=== PATIENT | male | born 1975 | race African-American/Black ===

== ENCOUNTER 2020-08-30 02:15 | Inpatient (IN) | payer OTHER, SELFPAY ==
[2020-08-30] MEDS ORDERED: Fentanyl 100 MCG/2 ML VIAL ONE (02:24)
[2020-08-30 02:50] LABS: Actual Bicarbonate (HCO3a) 20.2 mEq/L (22-28); Analyzer IN Cardio ER; Base Excess (BEa) -5.2 mEq/L (-2.0 to +3.0); Calcium, Ionized (arterial) 1.14 mmol/L (1.12-1.30); Carboxyhemoglobin (COHb) 0.7 gm% (0.0-3.0); Hemoglobin (Hb) 14.1 g/dL (14.0-18.0); O2 Tension (PaO2), arterial 110.7 mmHg (80.0-100.0); Potassium - ABG Lab 4.33 mmol/L (3.70-5.30); pH, Arterial 7.33 (7.35-7.45)
[2020-08-30 02:50] LABS: #Eosinphils 0.1 thou/uL (0.0-0.7); #Lymphocytes 1.3 thou/uL (1.20-3.40); #Monocytes 0.9 thou/uL (0.11-0.59); #Neutrophils 11.5 thou/uL (1.40-6.50); %Basophils 0.2 % (0.0-1.0); %Eosinophils 0.5 % (0.0-10.0); %Lymphocytes 9.2 % (21.0-51.0); %Monocytes 6.2 % (0.0-10.0); Mean Corpuscular Hemoglobin 31.4 pg (27.0-31.0); Mean Corpuscular Volume 92.2 fL (78.0-98.0); Mean Platelet Volume 6.3 fL (7.4-10.4); Platelet Count 268 thou/uL (130-400); RBC Distribution Width 12.1 % (11.5-14.5); Red Blood Cell (RBC) Count 4.45 mill/uL (4.70-6.10); White Blood Cell (WBC) Count 13.7 thou/uL (4.8-10.8)
[2020-08-30 02:59] LABS: INR-International Normal Ratio 1.1; PTT 23.8 sec (22.9-36.1)
[2020-08-30 03:05] LABS: Magnesium 1.8 mg/dL (1.6-2.6)
[2020-08-30 03:06] LABS: ALT (SGPT) 558 U/L (8-55); AST (SGOT) 469 U/L (5-34); Albumin 3.6 g/dL (3.5-5.0); Alkaline Phosphatase 60 U/L (40-110); Anion Gap 17 mmol/L (10-20); BUN (Urea Nitrogen) 13 mg/dL (8.9-20.6); Bilirubin, Total 0.6 mg/dL (0.2-1.2); Calc. Creatinine Clearance 0 mL/min (70-130); Carbon Dioxide 20 mmol/L (22-29); Chloride 105 mmol/L (98-107); Globulin 2.8 g/dL (2.4-3.5); Glucose 138 mg/dL (70-105); Phosphorus 4.7 mg/dL (2.3-4.7); Potassium 4.5 mmol/L (3.5-5.1); Protein, Total 6.4 g/dL (6.0-8.3); Sodium 137 mmol/L (136-145)
[2020-08-30 03:13] LABS: Puncture Site RBA
[2020-08-30] MEDS ORDERED: Dextrose 5% in Water 1,000 ML IV PRN (03:32)
[2020-08-30] MEDS ORDERED: Dextrose 50% Abboject 50 ML SYRINGE SLOW IVP PRN (03:32)
[2020-08-30] MEDS ORDERED: Ondansetron PF 4 MG/2 ML Vial IVP PRN (03:37)
[2020-08-30] MEDS ORDERED: Ventilator Sedation Protocol 1 EACH FS SCH (03:45)
[2020-08-30] MEDS ORDERED: Lactated Ringer's 1,000 ML IV SCH ×2 (03:45)
[2020-08-30] MEDS ORDERED: Morphine 2 MG/ML VIAL SLOW IVP PRN (03:45)
[2020-08-30] MEDS ORDERED: Propofol BOLUS 1,000 MG/100 ML VIAL IV PRN (03:45)
[2020-08-30] MEDS ORDERED: Fentanyl BOLUS 250 ML IVPB PRN (03:45)
[2020-08-30] MEDS ORDERED: DISCONTINUE PREVIOUS NARCOTIC PAIN MEDICATIONS AND BENZODIAZEPINES FS SCH (03:45)
[2020-08-30] MEDS ORDERED: Propofol 1,000 MG/100 ML VIAL IV ONE ×5 (04:39→16:06)
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
[2020-08-30 05:39] LABS: Lactic Acid 2.1 mmol/L (0.5-2.2)
[2020-08-30] MEDS: Propofol 1,000 MG/100 ML VIAL IV PRN ×3 (05:57→22:17)
[2020-08-30] MEDS: CEFAZOLIN 2 GM in Premix Bag 1 BAG IVPB SCH ×3 (05:58→20:55)
[2020-08-30 06:59] LABS: Bilirubin Negative (Negative); Blood, Urine 3+ (Negative); Clarity Turbid (Clear); Glucose, Urine (Dipstick) Normal (Negative); Ketone, Urine Negative (Negative); Leukocyte Negative Leu/uL (Negative); Nitrite Negative (Negative); Protein, Urine (Dipstick) 10 mg/dL (Neg-Trace); RBC/HPF Greater than 50 HPF (0-3); Specific Gravity, Urine 1.043 (1.002-1.036); Urobilinogen Normal mg/dL (Less than 2)
[2020-08-30 07:00] LABS: Sperm/HPF Rare HPF (None Seen)
[2020-08-30 07:17] LABS: Bacteria/HPF Rare-Few HPF (None Seen); Squamous Epithelial 0-3 HPF (0-3)
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
[2020-08-30] MEDS ORDERED: Famotidine/PF 20 mg/2ml Vial ONE (09:33)
[2020-08-30 09:52] LABS: Base Excess-Venous -0.8 mmol/L (-2.0 to 3.0); Bicarbonate (HCO3v) 26.9 mmol/L (22.0-28.0); CO2 Tension (PvCO2) 55.7 mmHg (40.0-50.0); Calcium, Ionized 1.12 mmol/L (1.15-1.33); Chloride 104 mmol/L (98-107); Glucose 120 mg/dL (70-105); Lactate 1.94 mmol/L (0.50-2.20); Potassium 4.6 mmol/L (3.5-5.1); Sodium 139 mmol/L (138-145); T. Carbon Dioxide 28.6 mmol/L (22.0-28.0); vO2 Saturation-calc 64.7 % (60.0-85.0)
[2020-08-30] MEDS: Lactated Ringer's 1,000 ML IV SCH ×2 (10:05→19:15)
[2020-08-30] MEDS: Famotidine/PF 20 mg/2ml Vial SLOW IVP SCH ×2 (10:06→20:55)
--- NOTE | 2020-08-30 10:17 | RAD ---
PORTABLE CHEST: Date: 08/30/2020 PROVIDED CLINICAL HISTORY: Respiratory failure. FINDINGS: Comparison with 08/30/2020 at 0322 hours. Significant interval change with respect to the prior examination is not apparent. IMPRESSION: As above. POS: ENOCH
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
[2020-08-30 11:43] LABS: Hemoglobin 14.5 g/dL (14.0-18.0); Mean Corpuscular HGB CONC 33.4 g/dL (32.0-36.0); Mean Corpuscular Hemoglobin 30.3 pg (27.0-31.0); Mean Corpuscular Volume 90.6 fL (78.0-98.0); Mean Platelet Volume 6.4 fL (7.4-10.4); Platelet Count 298 thou/uL (130-400); RBC Distribution Width 12.2 % (11.5-14.5); Red Blood Cell (RBC) Count 4.78 mill/uL (4.70-6.10); White Blood Cell (WBC) Count 11.5 thou/uL (4.8-10.8)
[2020-08-30 12:03] LABS: Anion Gap 15 mmol/L (10-20); BUN (Urea Nitrogen) 12 mg/dL (8.9-20.6); Calc. Creatinine Clearance 157 mL/min (70-130); Calcium 8.3 mg/dL (7.8-10.44); Carbon Dioxide 23 mmol/L (22-29); Chloride 104 mmol/L (98-107); Glucose 115 mg/dL (70-105); Potassium 4.8 mmol/L (3.5-5.1); Sodium 137 mmol/L (136-145)
[2020-08-30] MEDS ORDERED: Acetaminophen 650 MG Suppository ONE (12:43)
[2020-08-30] MEDS ORDERED: Acetaminophen 325 MG Suppository ONE (12:43)
[2020-08-30] MEDS ORDERED: Lactated Ringer's 500 ML IV SCH (13:15)
[2020-08-30] MEDS: Lorazepam 2 MG/ML VIAL SLOW IVP PRN (17:50)
[2020-08-30] MEDS ORDERED: Fentanyl CADD 100 ML ONE (19:13)
[2020-08-30] MEDS: Fentanyl CADD 100 ML IV SCH (19:15)
[2020-08-30 19:54] LABS: Hemoglobin 14.2 g/dL (14.0-18.0); Mean Corpuscular HGB CONC 32.6 g/dL (32.0-36.0); Mean Corpuscular Hemoglobin 29.9 pg (27.0-31.0); Mean Corpuscular Volume 91.7 fL (78.0-98.0); Mean Platelet Volume 6.4 fL (7.4-10.4); Platelet Count 301 thou/uL (130-400); RBC Distribution Width 12.3 % (11.5-14.5); Red Blood Cell (RBC) Count 4.76 mill/uL (4.70-6.10); White Blood Cell (WBC) Count 20.4 thou/uL (4.8-10.8)
[2020-08-31] MEDS: Propofol 1,000 MG/100 ML VIAL IV PRN ×4 (02:13→21:46)
[2020-08-31] MEDS ORDERED: Lactated Ringer's 500 ML IV SCH (04:30)
[2020-08-31 04:46] LABS: ALT (SGPT) 566 U/L (8-55); AST (SGOT) 371 U/L (5-34); Albumin 3.2 g/dL (3.5-5.0); Alkaline Phosphatase 91 U/L (40-110); Anion Gap 15 mmol/L (10-20); BUN (Urea Nitrogen) 26 mg/dL (8.9-20.6); Bilirubin, Total 0.6 mg/dL (0.2-1.2); Calc. Creatinine Clearance 42 mL/min (70-130); Calcium 8.1 mg/dL (7.8-10.44); Carbon Dioxide 22 mmol/L (22-29); Chloride 99 mmol/L (98-107); Globulin 3.2 g/dL (2.4-3.5); Glucose 130 mg/dL (70-105); Magnesium 1.8 mg/dL (1.6-2.6); Phosphorus 5.3 mg/dL (2.3-4.7); Potassium 5.3 mmol/L (3.5-5.1); Protein, Total 6.4 g/dL (6.0-8.3); Sodium 131 mmol/L (136-145)
[2020-08-31] MEDS: CEFAZOLIN 2 GM in Premix Bag 1 BAG IVPB SCH (05:27)
[2020-08-31] MEDS: Lactated Ringer's 1,000 ML IV SCH ×3 (05:28→16:11)
[2020-08-31 05:45] LABS: Eosinophils 6 % (0-10); Hemoglobin 13.2 g/dL (14.0-18.0); Lymphocytes 8 % (21-51); MDiff Complete? YES; Mean Corpuscular HGB CONC 31.8 g/dL (32.0-36.0); Mean Corpuscular Hemoglobin 29.1 pg (27.0-31.0); Mean Corpuscular Volume 91.8 fL (78.0-98.0); Mean Platelet Volume 6.9 fL (7.4-10.4); Monocytes 5 % (0-10); Neutrophil 65 % (42-75); Nucleated RBC 4 % (0); Platelet Count 273 thou/uL (130-400); Platelet Morphology Comment Appears Adequate; Promyelocytes 15 % (0-0); RBC Distribution Width 12.1 % (11.5-14.5); Reactive Lymphocytes 1 % (0-10); Red Blood Cell (RBC) Count 4.53 mill/uL (4.70-6.10); White Blood Cell (WBC) Count 21.6 thou/uL (4.8-10.8)
[2020-08-31] MEDS ORDERED: Fentanyl CADD 100 ML ONE ×2 (05:56→18:09)
[2020-08-31] MEDS: Fentanyl CADD 100 ML IV SCH ×2 (05:59→18:15)
[2020-08-31] MEDS: Famotidine/PF 20 mg/2ml Vial SLOW IVP SCH ×2 (09:11→20:44)
--- NOTE | 2020-08-31 09:26 | RAD ---
PORTABLE CHEST: 08/31/20 PROVIDED CLINICAL HISTORY: Respiratory failure. COMPARISON: 08/30/2020 FINDINGS: Direct comparison is limited, given differences in patient positioning. There is probably some improv ement in aeration at the right upper lung zone. There is a somewhat sharply defined lucency overlying a portion of the left lateral heart margin, which may reflect pneumomediastinum. Additional signific ant interval change with respect to prior is not apparent. IMPRESSION: Possible small degree of pneumomediastinum. POS: ENOCH
[2020-08-31] MEDS ORDERED: Albumin 5% 0 ML ONE (09:53)
[2020-08-31] MEDS ORDERED: Fentanyl 250 MCG/5 ML VIAL ONE (09:53)
[2020-08-31] MEDS ORDERED: Phenylephrine 10 MG/ML VIAL ONE (09:53)
[2020-08-31] MEDS ORDERED: Midazolam HCl 2 mg/2 ml Vial ONE (09:53)
[2020-08-31] MEDS ORDERED: Ketamine 50 MG/ML (10ML VIAL) ONE (09:54)
[2020-08-31] MEDS: Piperacillin/Tazobactam 4.5 GM in Sodium Chloride 0.9% 100 ML IVPB SCH ×2 (10:03→18:23)
[2020-08-31] MEDS ORDERED: Fentanyl 100 MCG/2 ML VIAL ONE (10:10)
[2020-08-31] MEDS ORDERED: Ondansetron PF 4 MG/2 ML Vial ONE (10:32)
[2020-08-31] MEDS ORDERED: Rocuronium Bromide 10 MG/ML (10ML VIAL) ONE (10:32)
[2020-08-31] MEDS ORDERED: PROPOFOL 200 MG/20 ML VIAL ONE ×2 (10:32)
[2020-08-31] MEDS ORDERED: Vecuronium 10 MG VIAL ONE (10:32)
[2020-08-31] MEDS ORDERED: Dexamethasone 20 MG/5 ML VIAL ONE (10:32)
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
[2020-08-31] MEDS ORDERED: Sodium Chloride 0.9% 1,000 ML IV SCH (13:15)
[2020-08-31 14:58] LABS: Hemoglobin 12.3 g/dL (14.0-18.0); Mean Corpuscular HGB CONC 32.2 g/dL (32.0-36.0); Mean Corpuscular Hemoglobin 29.6 pg (27.0-31.0); Mean Corpuscular Volume 91.9 fL (78.0-98.0); Mean Platelet Volume 6.8 fL (7.4-10.4); Platelet Count 219 thou/uL (130-400); RBC Distribution Width 11.9 % (11.5-14.5); Red Blood Cell (RBC) Count 4.17 mill/uL (4.70-6.10); White Blood Cell (WBC) Count 17.8 thou/uL (4.8-10.8)
[2020-08-31 15:01] LABS: INR-International Normal Ratio 1.4; PTT 28.1 sec (22.9-36.1); Prothrombin Time 17.1 sec (12.0-14.7)
[2020-08-31 15:09] LABS: Anion Gap 17 mmol/L (10-20); BUN (Urea Nitrogen) 32 mg/dL (8.9-20.6); Calc. Creatinine Clearance 36 mL/min (70-130); Calcium 7.7 mg/dL (7.8-10.44); Carbon Dioxide 20 mmol/L (22-29); Chloride 105 mmol/L (98-107); Glucose 140 mg/dL (70-105); Potassium 5.9 mmol/L (3.5-5.1); Sodium 136 mmol/L (136-145)
[2020-08-31 15:15] LABS: Band 3 % (5-11); Eosinophils 5 % (0-10); Lymphocytes 37 % (21-51); MDiff Complete? YES; Monocytes 9 % (0-10); Neutrophil 46 % (42-75); Platelet Morphology Comment Appears Adequate; RBC Morphology Normal
[2020-08-31] MEDS ORDERED: Dextrose 50% Abboject 50 ML SYRINGE SLOW IVP SCH (16:00)
[2020-08-31] MEDS ORDERED: Insulin Regular 300 UNITS/3 ML VIAL IVP SCH (16:00)
[2020-08-31] MEDS ORDERED: Albuterol Sulfate 2.5 mg/0.5 ml Neb NEB SCH (16:00)
[2020-08-31] MEDS: Sodium Chloride 0.9% 1,000 ML IV SCH (18:25)
[2020-08-31] MEDS: Piperacillin/Tazobactam 2.25 GM in Sodium Chloride 0.9% 100 ML IVPB SCH (20:45)
[2020-08-31] MEDS ORDERED: Sodium Bicarb 50 MEQ/50 ML Abboject 8.4% SYRINGE IVP SCH (21:15)
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
[2020-09-01] MEDS: Piperacillin/Tazobactam 2.25 GM in Sodium Chloride 0.9% 100 ML IVPB SCH ×4 (01:54→20:16)
[2020-09-01] MEDS: Sodium Chloride 0.9% 1,000 ML IV SCH ×3 (01:54→17:58)
[2020-09-01] MEDS ORDERED: Fentanyl CADD 100 ML ONE ×2 (03:21→13:08)
[2020-09-01] MEDS: Fentanyl CADD 100 ML IV SCH ×2 (03:27→22:31)
[2020-09-01] MEDS: Propofol 1,000 MG/100 ML VIAL IV PRN ×5 (03:27→22:47)
[2020-09-01 04:43] LABS: Phosphorus 3.9 mg/dL (2.3-4.7)
[2020-09-01 04:44] LABS: ALT (SGPT) 218 U/L (8-55); AST (SGOT) 135 U/L (5-34); Albumin 2.6 g/dL (3.5-5.0); Alkaline Phosphatase 75 U/L (40-110); Anion Gap 15 mmol/L (10-20); BUN (Urea Nitrogen) 37 mg/dL (8.9-20.6); Band 48 % (5-11); Bilirubin, Total 0.6 mg/dL (0.2-1.2); Calc. Creatinine Clearance 39 mL/min (70-130); Calcium 8.2 mg/dL (7.8-10.44); Carbon Dioxide 24 mmol/L (22-29); Chloride 109 mmol/L (98-107); Glucose 140 mg/dL (70-105); Hemoglobin 11.2 g/dL (14.0-18.0); Lymphocytes 4 % (21-51); MDiff Complete? YES; Magnesium 2.1 mg/dL (1.6-2.6); Mean Corpuscular HGB CONC 31.7 g/dL (32.0-36.0); Mean Corpuscular Hemoglobin 28.9 pg (27.0-31.0); Mean Corpuscular Volume 91.1 fL (78.0-98.0); Mean Platelet Volume 7.1 fL (7.4-10.4); Metamyelocyte 1 % (0-0); Monocytes 5 % (0-10); Neutrophil 41 % (42-75); Platelet Count 220 thou/uL (130-400); Platelet Morphology Comment Appears Adequate; Potassium 4.8 mmol/L (3.5-5.1); Protein, Total 5.6 g/dL (6.0-8.3); RBC Distribution Width 11.8 % (11.5-14.5); Reactive Lymphocytes 1 % (0-10); Red Blood Cell (RBC) Count 3.88 mill/uL (4.70-6.10); Sodium 143 mmol/L (136-145); White Blood Cell (WBC) Count 16.3 thou/uL (4.8-10.8)
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
[2020-09-01] MEDS: Famotidine/PF 20 mg/2ml Vial SLOW IVP SCH ×2 (08:24→08:40)
--- NOTE | 2020-09-01 09:45 | RAD ---
PORTABLE CHEST: Date: 09/01/2020 HISTORY: Respiratory failure. COMPARISON: 08/31/2020 exam. FINDINGS: Endotracheal and NG tubes are in satisfactory position. Infiltrative changes in the left lung are sim ilar to the prior examination. There is increasing opacification of the right upper lobe. This would suggest atelectasis related to mucus plugging of the right upper lobe. IMPRESSION: Worsening atelectatic changes of the right upper lobe. Stable left-sided infiltrative lung change. POS: [place]
[2020-09-01] MEDS ORDERED: Midazolam HCl 2 mg/2 ml Vial ONE (10:15)
[2020-09-01] MEDS ORDERED: Midazolam HCl 2 mg/2 ml Vial SLOW IVP SCH (10:45)
[2020-09-01] MEDS: Lorazepam 2 MG/ML VIAL SLOW IVP PRN (12:36)
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
[2020-09-02] MEDS: Piperacillin/Tazobactam 2.25 GM in Sodium Chloride 0.9% 100 ML IVPB SCH ×4 (01:55→20:58)
[2020-09-02] MEDS: Propofol 1,000 MG/100 ML VIAL IV PRN ×7 (03:15→23:21)
[2020-09-02 03:42] LABS: Band 19 % (5-11); Eosinophils 5 % (0-10); Hemoglobin 10.1 g/dL (14.0-18.0); Hypochromia SLIGHT = 6-15 cells (100X) (0-5/hpf); Lymphocytes 12 % (21-51); MDiff Complete? YES; Mean Corpuscular HGB CONC 33.9 g/dL (32.0-36.0); Mean Corpuscular Hemoglobin 30.9 pg (27.0-31.0); Mean Corpuscular Volume 91.4 fL (78.0-98.0); Mean Platelet Volume 6.9 fL (7.4-10.4); Monocytes 7 % (0-10); Neutrophil 57 % (42-75); Platelet Count 256 thou/uL (130-400); Platelet Morphology Comment Appears Adequate; RBC Distribution Width 11.9 % (11.5-14.5); Red Blood Cell (RBC) Count 3.26 mill/uL (4.70-6.10); White Blood Cell (WBC) Count 15.6 thou/uL (4.8-10.8)
[2020-09-02 03:43] LABS: Anion Gap 13 mmol/L (10-20); BUN (Urea Nitrogen) 48 mg/dL (8.9-20.6); Calc. Creatinine Clearance 44 mL/min (70-130); Calcium 8.3 mg/dL (7.8-10.44); Carbon Dioxide 24 mmol/L (22-29); Chloride 114 mmol/L (98-107); Glucose 105 mg/dL (70-105); Magnesium 2.6 mg/dL (1.6-2.6); Phosphorus 3.2 mg/dL (2.3-4.7); Potassium 4.4 mmol/L (3.5-5.1); Sodium 147 mmol/L (136-145)
[2020-09-02] MEDS: Sodium Chloride 0.9% 1,000 ML IV SCH ×2 (04:22→11:30)
[2020-09-02] MEDS ORDERED: Albumin 25% 25 GM/100 ML BOT IVPB SCH (05:33)
[2020-09-02] MEDS ORDERED: Fentanyl 100 MCG/2 ML VIAL ONE (06:36)
[2020-09-02] MEDS ORDERED: Midazolam HCl 5 mg/5 ml Vial ONE (07:09)
--- NOTE | 2020-09-02 08:03 | RAD ---
EXAM: XR Chest 1 View Portable PROVIDED CLINICAL HISTORY: Respiratory insufficiency COMPARISON: 09/01/2020 FINDINGS: Interval improvement in aeration at the right upper lobe. Additional significant interval change with respect to the prior examination is not apparent. IMPRESSION: As above.
[2020-09-02] MEDS: Polyethylene Glycol 3350 17 GM Packet PO SCH (09:00)
[2020-09-02] MEDS: Senokot S 8.6-50 MG TAB PO SCH ×2 (09:00→20:58)
[2020-09-02] MEDS ORDERED: Rocuronium Bromide 50 MG/5 ML VIAL ONE (09:01)
[2020-09-02] MEDS ORDERED: Rocuronium Bromide 10 MG/ML (10ML VIAL) ONE (09:10)
[2020-09-02] MEDS ORDERED: PROPOFOL 200 MG/20 ML VIAL ONE (09:11)
--- NOTE | 2020-09-02 10:50 | RAD ---
Exam: 1 view abdomen HISTORY: Feeding tube placement FINDINGS: Dobbhoff feeding tube is noted, curled within the stomach. Repositioning and advancement is recommended. Nasogastric tube terminates in the stomach IMPRESSION: As above
[2020-09-02] MEDS: Fentanyl CADD 100 ML IV SCH ×2 (11:15→22:01)
[2020-09-02] MEDS: Famotidine/PF 20 mg/2ml Vial SLOW IVP SCH (11:32)
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
--- NOTE | 2020-09-02 12:36 | PRG ---
DATE OF SERVICE: SUBJECTIVE: A 45-year-old gentleman being seen for acute kidney injury. The patient is resting. PHYSICAL EXAMINATION: GENERAL: The patient is resting. VITAL SIGNS: Afebrile, pulse 75, breathing at 16, blood pressure 175/120. HEENT: Head normocephalic and atraumatic. Eyes intact, no ulcers. Nose intact, no ulcers. Ears intact, no ulcers. NECK: Supple. No JVD. CHEST: Symmetrical and clear. CARDIOVASCULAR: Shows S1 and S2, no rub, no murmur. GASTROINTESTINAL: Abdomen is soft, bowel sounds positive. EXTREMITIES: Show no edema or ulcers. SKIN: Shows no rash or petechiae. MUSCULOSKELETAL: Shows no joint swelling or stiffness. GENITOURINARY: Shows no Charles or CVA tenderness. NEUROLOGIC: Motor intact. Cranial nerves intact. LABORATORY DATA: Hemoglobin 10.1. Sodium 147, creatinine 3.4. ASSESSMENT: 1. Acute kidney injury, improved. 2. Hypertension, would recommend titrating blood pressure medications. 3. Anemia, stable. PLAN: No indication for dialysis. Job ID: [id number]
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
[2020-09-02] MEDS ORDERED: Fentanyl CADD 100 ML ONE (21:55)
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
[2020-09-03] MEDS: Piperacillin/Tazobactam 2.25 GM in Sodium Chloride 0.9% 100 ML IVPB SCH ×4 (01:48→19:15)
[2020-09-03] MEDS: Sodium Chloride 0.9% 1,000 ML IV SCH ×3 (01:51→07:49)
[2020-09-03] MEDS: Propofol 1,000 MG/100 ML VIAL IV PRN ×7 (02:19→21:45)
[2020-09-03 04:49] LABS: Band 18 % (5-11); Eosinophils 1 % (0-10); Hemoglobin 9.9 g/dL (14.0-18.0); Lymphocytes 7 % (21-51); MDiff Complete? YES; Mean Corpuscular HGB CONC 32.9 g/dL (32.0-36.0); Mean Corpuscular Hemoglobin 30.5 pg (27.0-31.0); Mean Corpuscular Volume 92.6 fL (78.0-98.0); Mean Platelet Volume 6.9 fL (7.4-10.4); Metamyelocyte 2 % (0-0); Monocytes 9 % (0-10); Myelocyte 2 % (0-0); Neutrophil 60 % (42-75); Platelet Count 273 thou/uL (130-400); Platelet Morphology Comment Appears Adequate; RBC Distribution Width 12.2 % (11.5-14.5); Reactive Lymphocytes 1 % (0-10); Red Blood Cell (RBC) Count 3.25 mill/uL (4.70-6.10)
[2020-09-03 05:00] LABS: Anion Gap 15 mmol/L (10-20); BUN (Urea Nitrogen) 47 mg/dL (8.9-20.6); Calc. Creatinine Clearance 43 mL/min (70-130); Carbon Dioxide 23 mmol/L (22-29); Chloride 117 mmol/L (98-107); Glucose 128 mg/dL (70-105); Magnesium 2.8 mg/dL (1.6-2.6); Phosphorus 4.4 mg/dL (2.3-4.7); Potassium 4.8 mmol/L (3.5-5.1); Sodium 150 mmol/L (136-145)
[2020-09-03] MEDS ORDERED: Dextrose 5 %-0.45 % NaCl 1,000 ML IV SCH (07:15)
[2020-09-03] MEDS ORDERED: Sodium Bicarbonate 50 MEQ in Dextrose 5% in Water 1,000 ML IV SCH ×2 (08:30→14:45)
[2020-09-03 08:43] LABS: ALT (SGPT) 75 U/L (8-55); AST (SGOT) 84 U/L (5-34); Albumin 2.6 g/dL (3.5-5.0); Alkaline Phosphatase 77 U/L (40-110); Bilirubin, Total 2.4 mg/dL (0.2-1.2); CK (CPK) 2435 U/L (30-200); Protein, Total 5.7 g/dL (6.0-8.3)
[2020-09-03] MEDS: Enoxaparin Sodium 30 MG/0.3 ML SYRINGE SC SCH ×2 (08:43→20:56)
[2020-09-03] MEDS: Senokot S 8.6-50 MG TAB PO SCH ×2 (08:43→20:57)
[2020-09-03] MEDS: Saccharomyces boulardii 250 MG CAP PO SCH (08:43)
[2020-09-03] MEDS: Polyethylene Glycol 3350 17 GM Packet PO SCH (08:44)
[2020-09-03] MEDS: Famotidine/PF 20 mg/2ml Vial SLOW IVP SCH (08:44)
--- NOTE | 2020-09-03 09:06 | RAD ---
CHEST 1 VIEW: INDICATION: Intubation. COMPARISON: Prior exam dated 09/02/2020. IMPRESSION: There is worsening bilateral airspace disease. No pneumothorax is evident. The patient was intubate d with gastric catheter placement. There has been interval placement of a feeding tube that projects below the level of the left hemidiaphragm. Right internal jugular central venous catheter is stable . POS: BH
[2020-09-03] MEDS ORDERED: Dextrose 5% in Water 1,000 ML IV SCH (09:30)
[2020-09-03] MEDS: Fentanyl CADD 100 ML IV SCH ×2 (09:38→21:35)
--- NOTE | 2020-09-03 09:48 | PRG ---
DATE OF SERVICE: 09/03/2020 SUBJECTIVE: A 45-year-old male, being seen for acute kidney injury. The patient is resting. PHYSICAL EXAMINATION: General: The patient is awake and alert. Vital Signs: Afebrile, pulse 102, breathing at 16, blood pressure 147/97. HEENT: Head normocephalic and atraumatic. Eyes intact, no ulcers. Nose intact, no ulcers. Ears intact, no ulcers. Neck: Supple. No JVD. Chest: Symmetrical and clear. Cardiovascular: Shows S1 and S2, no rub, no murmur. Gastrointestinal: Abdomen is soft, bowel sounds positive. Extremities: Show no edema or ulcers. Skin: Shows no rash or petechiae. Musculoskeletal: Shows no joint swelling or stiffness. Genitourinary: Shows no Charles or CVA tenderness. Neurologic: Motor intact. Cranial nerves intact. LABORATORY DATA: Showed hemoglobin 9.9. Creatinine 3.6. ASSESSMENT AND PLAN: 1. Stage 4 chronic kidney disease, multifactorial, likely due to decreased effective arterial blood volume. Continue hydration. 2. Anemia, stable. 3. Medication based on GFR, appropriate. No indication for dialysis. 4. Hypernatremia. Change the IV fluid to D5 water. Stop the bicarb drip. No indication for dialysis. Job ID: [id number]
[2020-09-03 11:56] LABS: Actual Bicarbonate (HCO3a) 24.5 mEq/L (22-28); Base Excess (BEa) -2.5 mEq/L (-2.0 to +3.0); CO2 Tension 52.1 mmHg (35.0-45.0); Calcium, Ionized (arterial) 1.02 mmol/L (1.12-1.30); Carboxyhemoglobin (COHb) 0.2 gm% (0.0-3.0); Hemoglobin (Hb) 11.1 g/dL (14.0-18.0); O2 Tension (PaO2), arterial 341.7 mmHg (80.0-100.0); Potassium - ABG Lab 4.47 mmol/L (3.70-5.30); pH, Arterial 7.29 (7.35-7.45)
[2020-09-03 11:59] LABS: Puncture Site LRA
[2020-09-03 12:00] LABS: ALV-art Gradient 306.175 mmHg (0-20)
[2020-09-03] MEDS ORDERED: Calcium Chloride 13.6 MEQ in Sodium Chloride 0.9% 100 ML IVPB SCH (12:30)
[2020-09-03 15:09] LABS: Hemoglobin 9.4 g/dL (14.0-18.0); Mean Corpuscular HGB CONC 33.3 g/dL (32.0-36.0); Mean Corpuscular Hemoglobin 31.1 pg (27.0-31.0); Mean Corpuscular Volume 93.6 fL (78.0-98.0); Mean Platelet Volume 6.3 fL (7.4-10.4); Platelet Count 250 thou/uL (130-400); RBC Distribution Width 12.4 % (11.5-14.5); Red Blood Cell (RBC) Count 3.02 mill/uL (4.70-6.10); White Blood Cell (WBC) Count 16.7 thou/uL (4.8-10.8)
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
[2020-09-03 15:23] LABS: Band 13 % (5-11); Eosinophils 4 % (0-10); Lymphocytes 8 % (21-51); MDiff Complete? YES; Monocytes 9 % (0-10); Myelocyte 1 % (0-0); Neutrophil 65 % (42-75); Platelet Morphology Comment Appears Adequate; Polychromasia SLIGHT = 2-3 cells (100X) (0-2/hpf)
[2020-09-03 15:30] LABS: Anion Gap 10 mmol/L (10-20); BUN (Urea Nitrogen) 45 mg/dL (8.9-20.6); Calc. Creatinine Clearance 45 mL/min (70-130); Calcium 8.8 mg/dL (7.8-10.44); Carbon Dioxide 25 mmol/L (22-29); Chloride 119 mmol/L (98-107); Glucose 115 mg/dL (70-105); Magnesium 3.1 mg/dL (1.6-2.6); Phosphorus 4.2 mg/dL (2.3-4.7); Potassium 4.6 mmol/L (3.5-5.1); Sodium 149 mmol/L (136-145)
[2020-09-03] MEDS ORDERED: Fentanyl CADD 100 ML ONE ×2 (16:16→20:40)
[2020-09-03 16:56] LABS: SARS-CoV-2 PCR by NAA Not Detected (NotDetected)
--- NOTE | 2020-09-03 23:15 | PDOC.BPN ---
- Brief Progress Note Encounter Date: 09/03/20 Encounter Time: 20:15 Patient was seen during evening rounds in the critical care unit on full mechanical ventilatory support and sedation. No issues reported by the patients nurse. Vital signs are stable and patient is afebrile. Urinary output is adequate for age and weight. Continues to tolerate tropic feeds. Plan of care is unchanged
[2020-09-04] MEDS: Propofol 1,000 MG/100 ML VIAL IV PRN ×7 (00:44→22:15)
[2020-09-04] MEDS: Piperacillin/Tazobactam 2.25 GM in Sodium Chloride 0.9% 100 ML IVPB SCH ×4 (01:18→19:47)
[2020-09-04 04:48] LABS: Band 8 % (5-11); Eosinophils 2 % (0-10); Hemoglobin 8.6 g/dL (14.0-18.0); Hypochromia SLIGHT = 6-15 cells (100X) (0-5/hpf); Lymphocytes 11 % (21-51); MDiff Complete? YES; Mean Corpuscular Hemoglobin 30.8 pg (27.0-31.0); Mean Corpuscular Volume 93.3 fL (78.0-98.0); Mean Platelet Volume 6.8 fL (7.4-10.4); Monocytes 19 % (0-10); Neutrophil 60 % (42-75); Platelet Count 268 thou/uL (130-400); Platelet Morphology Comment Appears Adequate; RBC Distribution Width 12.5 % (11.5-14.5); White Blood Cell (WBC) Count 17.8 thou/uL (4.8-10.8)
[2020-09-04 04:54] LABS: Lactic Acid 0.6 mmol/L (0.5-2.2)
[2020-09-04 05:01] LABS: Anion Gap 14 mmol/L (10-20); BUN (Urea Nitrogen) 45 mg/dL (8.9-20.6); CK (CPK) 1636 U/L (30-200); Calc. Creatinine Clearance 42 mL/min (70-130); Calcium 8.5 mg/dL (7.8-10.44); Carbon Dioxide 26 mmol/L (22-29); Chloride 118 mmol/L (98-107); Glucose 131 mg/dL (70-105); Magnesium 3.1 mg/dL (1.6-2.6); Phosphorus 4.9 mg/dL (2.3-4.7); Potassium 4.6 mmol/L (3.5-5.1); Sodium 153 mmol/L (136-145)
[2020-09-04 07:44] LABS: ALT (SGPT) 58 U/L (8-55); AST (SGOT) 72 U/L (5-34); Albumin 2.6 g/dL (3.5-5.0); Alkaline Phosphatase 108 U/L (40-110); Bilirubin, Direct 1.9 mg/dL (0.1-0.3); Bilirubin, Total 2.4 mg/dL (0.2-1.2); Lipase 48 U/L (8-78); Protein, Total 6.1 g/dL (6.0-8.3)
--- NOTE | 2020-09-04 08:35 | RAD ---
Exam: Chest one view HISTORY:Intubated patient. Respiratory distress. Comparison: 09/03/2020, 09/02/2020 FINDINGS: Lines and tubes: Redemonstration of a endotracheal tube, nasogastric tube and right-sided internal ju gular vascular catheter. Interval placement of a Dobbhoff feeding tube. Cardiac silhouette: Normal Aorta: Unremarkable Pulmonary vessels: Normal Costophrenic angles: Clear LUNGS: Redemonstration of multifocal interstitial and alveolar opacities. Pneumothorax: None Osseous abnormalities: None IMPRESSION: Interval placement of Dobbhoff feeding tube, otherwise, no significant interval change. D obbhoff feeding tube cannot be assessed on this exam as it is not included in its entirety.
[2020-09-04] MEDS: Enoxaparin Sodium 30 MG/0.3 ML SYRINGE SC SCH ×2 (08:48→20:03)
[2020-09-04] MEDS: Saccharomyces boulardii 250 MG CAP PO SCH (08:48)
[2020-09-04] MEDS: Senokot S 8.6-50 MG TAB PO SCH ×2 (08:48→20:03)
[2020-09-04] MEDS: Polyethylene Glycol 3350 17 GM Packet PO SCH (08:49)
[2020-09-04] MEDS: Famotidine/PF 20 mg/2ml Vial SLOW IVP SCH (08:49)
[2020-09-04] MEDS: Dextrose 5% in Water 1,000 ML IV SCH ×3 (08:52→23:00)
[2020-09-04] MEDS ORDERED: Fentanyl CADD 100 ML ONE ×2 (09:16→20:09)
--- NOTE | 2020-09-04 15:03 | PRG ---
DATE OF SERVICE: 09/04/2020 SUBJECTIVE: A 45-year-old gentleman, being seen for acute kidney injury. PHYSICAL EXAMINATION: GENERAL: The patient is resting. VITAL SIGNS: Afebrile, pulse 100, breathing at 16, blood pressure 133/67. HEENT: Head normocephalic and atraumatic. Eyes intact, no ulcers. Nose intact, no ulcers. Ears intact, no ulcers. NECK: Supple. No JVD. CHEST: Symmetrical and clear. CARDIOVASCULAR: Shows S1 and S2, no rub, no murmur. GASTROINTESTINAL: Abdomen is soft, bowel sounds positive. EXTREMITIES: Show no edema or ulcers. SKIN: Shows no rash or petechiae. MUSCULOSKELETAL: Shows no joint swelling or stiffness. GENITOURINARY: Shows no Charles or CVA tenderness. NEUROLOGIC: The patient is resting. DIAGNOSTIC STUDIES: Labs show hemoglobin 8.6. Sodium was 153, creatinine 3.6. ASSESSMENT AND PLAN: 1. Acute kidney injury with chronic kidney disease stage 4, most likely due to decreased effective arterial blood volume. Continue hydration. 2. Hypernatremia, we would recommend increasing free water. Job ID: [id number]
[2020-09-04 15:51] LABS: Anion Gap 12 mmol/L (10-20); BUN (Urea Nitrogen) 40 mg/dL (8.9-20.6); Calc. Creatinine Clearance 41 mL/min (70-130); Calcium 8.3 mg/dL (7.8-10.44); Carbon Dioxide 26 mmol/L (22-29); Chloride 118 mmol/L (98-107); Glucose 122 mg/dL (70-105); Potassium 4.3 mmol/L (3.5-5.1); Sodium 152 mmol/L (136-145)
[2020-09-04 17:50] LABS: Anion Gap 11 mmol/L (10-20); BUN (Urea Nitrogen) 41 mg/dL (8.9-20.6); Calc. Creatinine Clearance 41 mL/min (70-130); Calcium 8.2 mg/dL (7.8-10.44); Carbon Dioxide 26 mmol/L (22-29); Chloride 117 mmol/L (98-107); Glucose 112 mg/dL (70-105); Magnesium 2.9 mg/dL (1.6-2.6); Phosphorus 2.8 mg/dL (2.3-4.7); Potassium 4.1 mmol/L (3.5-5.1); Sodium 150 mmol/L (136-145)
[2020-09-04 17:52] LABS: Band 35 % (5-11); Eosinophils 5 % (0-10); Hemoglobin 7.9 g/dL (14.0-18.0); Lymphocytes 5 % (21-51); MDiff Complete? YES; Mean Corpuscular HGB CONC 32.9 g/dL (32.0-36.0); Mean Corpuscular Hemoglobin 30.4 pg (27.0-31.0); Mean Corpuscular Volume 92.3 fL (78.0-98.0); Mean Platelet Volume 6.6 fL (7.4-10.4); Metamyelocyte 5 % (0-0); Monocytes 7 % (0-10); Myelocyte 12 % (0-0); Neutrophil 31 % (42-75); Platelet Count 262 thou/uL (130-400); Platelet Morphology Comment Appears Adequate; Polychromasia SLIGHT = 2-3 cells (100X) (0-2/hpf); RBC Distribution Width 12.5 % (11.5-14.5); White Blood Cell (WBC) Count 16.6 thou/uL (4.8-10.8)
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
[2020-09-04] MEDS: Fentanyl CADD 100 ML IV SCH (20:19)
--- NOTE | 2020-09-05 00:34 | PDOC.BPN ---
- Brief Progress Note Encounter Date: 09/04/20 Encounter Time: 20:45 Patient was seen during evening rounds in the critical care unit on full mechanical ventilatory support and sedation. No issues reported by the patients nurse. Vital signs are stable, high temp 100.8 Urinary output is adequate for age and weight but has decreased some and has sediment. Obtain urine and blood culture. Continue full mechanical ventilatory support and sedation. Will hold off on Tylenol and Motrin due to Liver and kidney injury. Continue to avoid all nephrotoxic agents.
[2020-09-05] MEDS: Propofol 1,000 MG/100 ML VIAL IV PRN ×9 (01:00→21:56)
[2020-09-05] MEDS: Piperacillin/Tazobactam 2.25 GM in Sodium Chloride 0.9% 100 ML IVPB SCH ×4 (02:50→20:13)
[2020-09-05 03:55] LABS: Anion Gap 13 mmol/L (10-20); BUN (Urea Nitrogen) 43 mg/dL (8.9-20.6); CK (CPK) 1091 U/L (30-200); Calc. Creatinine Clearance 41 mL/min (70-130); Calcium 8.3 mg/dL (7.8-10.44); Carbon Dioxide 26 mmol/L (22-29); Chloride 115 mmol/L (98-107); Glucose 123 mg/dL (70-105); Magnesium 2.9 mg/dL (1.6-2.6); Phosphorus 3.7 mg/dL (2.3-4.7); Sodium 150 mmol/L (136-145)
[2020-09-05 04:47] LABS: Band 17 % (5-11); Eosinophils 7 % (0-10); Hemoglobin 7.9 g/dL (14.0-18.0); Lymphocytes 8 % (21-51); MDiff Complete? YES; Mean Corpuscular HGB CONC 33.2 g/dL (32.0-36.0); Mean Corpuscular Hemoglobin 30.6 pg (27.0-31.0); Mean Corpuscular Volume 92.1 fL (78.0-98.0); Mean Platelet Volume 6.6 fL (7.4-10.4); Metamyelocyte 6 % (0-0); Monocytes 3 % (0-10); Myelocyte 5 % (0-0); Neutrophil 54 % (42-75); Platelet Count 274 thou/uL (130-400); RBC Distribution Width 12.6 % (11.5-14.5); Red Blood Cell (RBC) Count 2.57 mill/uL (4.70-6.10); White Blood Cell (WBC) Count 17.1 thou/uL (4.8-10.8)
[2020-09-05] MEDS ORDERED: Fentanyl CADD 100 ML ONE ×3 (04:56→23:40)
[2020-09-05] MEDS: Fentanyl CADD 100 ML IV SCH (04:59)
[2020-09-05] MEDS: Dextrose 5% in Water 1,000 ML IV SCH ×3 (05:35→20:07)
--- NOTE | 2020-09-05 08:08 | RAD ---
EXAM: CHEST ONE VIEW HISTORY: Evaluate ARDS. Intubated. Follow-up evaluation. COMPARISON: 09/04/2020 FINDINGS: Endotracheal tube, nasogastric tube, Dobbhoff feeding tube, and right-sided vascular catheter remain in place. Cardiac silhouette is magnified by projection but stable in size. Again noted are interstitial and parenchymal airspace opacities more prominent in a perihilar location. The parenchym al opacities are overall similar to prior study allowing for patient rotation to the right. No pleural effusion is appreciated. IMPRESSION: Stable chest.
[2020-09-05] MEDS: Saccharomyces boulardii 250 MG CAP PO SCH (08:52)
[2020-09-05] MEDS: Polyethylene Glycol 3350 17 GM Packet PO SCH (08:52)
[2020-09-05] MEDS: Senokot S 8.6-50 MG TAB PO SCH ×2 (08:53→20:14)
[2020-09-05] MEDS: Famotidine/PF 20 mg/2ml Vial SLOW IVP SCH (08:53)
[2020-09-05] MEDS: Enoxaparin Sodium 30 MG/0.3 ML SYRINGE SC SCH ×2 (08:58→20:13)
--- NOTE | 2020-09-05 10:24 | PRG ---
DATE OF SERVICE: 09/05/2020 SUBJECTIVE: A 45-year-old male being seen for acute kidney injury. The patient is intubated. PHYSICAL EXAMINATION: General: The patient is resting. Vital Signs: Afebrile, pulse 80, breathing at 16, blood pressure 157/87. HEENT: Head normocephalic and atraumatic. Eyes intact, no ulcers. Nose intact, no ulcers. Ears intact, no ulcers. Neck: Supple. No JVD. Chest: Symmetrical and clear. Cardiovascular: Shows S1 and S2, no rub, no murmur. Gastrointestinal: Abdomen is soft, bowel sounds positive. Extremities: Show no edema or ulcers. Skin: Shows no rash or petechiae. Musculoskeletal: Shows no joint swelling or stiffness. Genitourinary: Shows no Charles or CVA tenderness. Neurologic: Motor intact. Cranial nerves intact. LABORATORY DATA: Lab show hemoglobin 7.9. Sodium 150, creatinine 3.8. IMPRESSION: 1. CKD, stage 4, stable. 2. Hypertension, stable. 3. Hyponatremia. Increase free water to 400 mL. Follow sodium closely. No indication for dialysis. Job ID: [id number]
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
[2020-09-05 16:43] LABS: Anion Gap 15 mmol/L (10-20); BUN (Urea Nitrogen) 42 mg/dL (8.9-20.6); Calc. Creatinine Clearance 46 mL/min (70-130); Calcium 8.2 mg/dL (7.8-10.44); Carbon Dioxide 23 mmol/L (22-29); Chloride 112 mmol/L (98-107); Glucose 117 mg/dL (70-105); Potassium 4.2 mmol/L (3.5-5.1); Sodium 146 mmol/L (136-145)
[2020-09-06] MEDS: Propofol 1,000 MG/100 ML VIAL IV PRN ×9 (00:15→21:30)
[2020-09-06] MEDS: Piperacillin/Tazobactam 2.25 GM in Sodium Chloride 0.9% 100 ML IVPB SCH ×4 (01:07→20:27)
--- NOTE | 2020-09-06 01:10 | PDOC.BPN ---
- Brief Progress Note Encounter Date: 09/05/20 Encounter Time: 22:30 Patient was seen during evening rounds in the critical care unit on full mechanical ventilatory support and sedation. No issues reported by the patients nurse. Vital signs are stable and patient is afebrile. His abdominal wound vac was changed today. His abdomen remains soft, but distended. Urinary output is adequate for age and weight. Plan of care is unchanged
[2020-09-06] MEDS: hydrALAZINE 20 MG/ML VIAL SLOW IVP PRN (02:04)
[2020-09-06] MEDS: Dextrose 5% in Water 1,000 ML IV SCH ×3 (02:56→16:05)
[2020-09-06 05:27] LABS: Anion Gap 12 mmol/L (10-20); BUN (Urea Nitrogen) 41 mg/dL (8.9-20.6); Calc. Creatinine Clearance 47 mL/min (70-130); Calcium 7.9 mg/dL (7.8-10.44); Carbon Dioxide 23 mmol/L (22-29); Chloride 109 mmol/L (98-107); Glucose 116 mg/dL (70-105); Magnesium 2.7 mg/dL (1.6-2.6); Phosphorus 3.9 mg/dL (2.3-4.7); Potassium 4.1 mmol/L (3.5-5.1); Sodium 140 mmol/L (136-145)
[2020-09-06 06:07] LABS: Band 32 % (5-11); Eosinophils 1 % (0-10); Lymphocytes 14 % (21-51); MDiff Complete? YES; Monocytes 3 % (0-10); Myelocyte 4 % (0-0); Neutrophil 46 % (42-75)
[2020-09-06 06:08] LABS: Hemoglobin 7.7 g/dL (14.0-18.0); Mean Corpuscular HGB CONC 34.1 g/dL (32.0-36.0); Mean Corpuscular Hemoglobin 31.1 pg (27.0-31.0); Mean Corpuscular Volume 91.3 fL (78.0-98.0); Mean Platelet Volume 6.7 fL (7.4-10.4); Platelet Count 298 thou/uL (130-400); RBC Distribution Width 12.7 % (11.5-14.5); Red Blood Cell (RBC) Count 2.49 mill/uL (4.70-6.10); White Blood Cell (WBC) Count 18.5 thou/uL (4.8-10.8)
[2020-09-06] MEDS: Polyethylene Glycol 3350 17 GM Packet PO SCH (08:24)
[2020-09-06] MEDS: Famotidine/PF 20 mg/2ml Vial SLOW IVP SCH (08:24)
[2020-09-06] MEDS: Enoxaparin Sodium 30 MG/0.3 ML SYRINGE SC SCH ×2 (08:25→20:27)
[2020-09-06] MEDS: Saccharomyces boulardii 250 MG CAP PO SCH (08:25)
[2020-09-06] MEDS: Senokot S 8.6-50 MG TAB PO SCH ×2 (08:25→20:27)
[2020-09-06] MEDS ORDERED: Fentanyl CADD 100 ML ONE ×2 (10:13→20:03)
[2020-09-06] MEDS: Fluconazole In NaCl,Iso-Osm 400 MG in Premix Bag 1 BAG IVPB SCH (10:31)
--- NOTE | 2020-09-06 13:01 | RAD ---
RADIOGRAPH CHEST 1 VIEW: DATE: 09/06/2020 TIME: 4:10 AM HISTORY: 45-year-old male with respiratory failure. ARDS. COMPARISON: 09/05/2020 FINDINGS: No change in life support lines. No change in predominantly central infiltrates, left greater than right, most prominently in left upp er lobe. No interval change overall. IMPRESSION: No interval change
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
[2020-09-06] MEDS: Lactated Ringer's 1,000 ML IV SCH (16:32)
[2020-09-07] MEDS: Lactated Ringer's 1,000 ML IV SCH ×2 (00:11→08:53)
[2020-09-07] MEDS: Propofol 1,000 MG/100 ML VIAL IV PRN ×10 (00:11→22:42)
[2020-09-07] MEDS: Piperacillin/Tazobactam 2.25 GM in Sodium Chloride 0.9% 100 ML IVPB SCH ×4 (01:28→20:00)
[2020-09-07 03:41] LABS: ALT (SGPT) 29 U/L (8-55); AST (SGOT) 42 U/L (5-34); Albumin 2.4 g/dL (3.5-5.0); Alkaline Phosphatase 76 U/L (40-110); Anion Gap 15 mmol/L (10-20); BUN (Urea Nitrogen) 44 mg/dL (8.9-20.6); Bilirubin, Total 3.1 mg/dL (0.2-1.2); Calc. Creatinine Clearance 44 mL/min (70-130); Calcium 8.4 mg/dL (7.8-10.44); Carbon Dioxide 22 mmol/L (22-29); Chloride 112 mmol/L (98-107); Globulin 3.9 g/dL (2.4-3.5); Glucose 105 mg/dL (70-105); Magnesium 2.7 mg/dL (1.6-2.6); Phosphorus 4.2 mg/dL (2.3-4.7); Potassium 4.1 mmol/L (3.5-5.1); Protein, Total 6.3 g/dL (6.0-8.3); Sodium 145 mmol/L (136-145)
[2020-09-07 04:50] LABS: Band 25 % (5-11); Eosinophils 2 % (0-10); Hemoglobin 7.5 g/dL (14.0-18.0); Lymphocytes 14 % (21-51); MDiff Complete? YES; Mean Corpuscular HGB CONC 33.6 g/dL (32.0-36.0); Mean Corpuscular Hemoglobin 30.4 pg (27.0-31.0); Mean Corpuscular Volume 90.6 fL (78.0-98.0); Metamyelocyte 2 % (0-0); Monocytes 2 % (0-10); Myelocyte 5 % (0-0); Neutrophil 50 % (42-75); Platelet Count 337 thou/uL (130-400); RBC Distribution Width 12.8 % (11.5-14.5); Red Blood Cell (RBC) Count 2.47 mill/uL (4.70-6.10); White Blood Cell (WBC) Count 19.1 thou/uL (4.8-10.8)
[2020-09-07] MEDS ORDERED: Fentanyl CADD 100 ML ONE ×2 (05:13→15:53)
[2020-09-07] MEDS: Polyethylene Glycol 3350 17 GM Packet PO SCH (08:52)
[2020-09-07] MEDS: Famotidine/PF 20 mg/2ml Vial SLOW IVP SCH (08:52)
[2020-09-07] MEDS: Senokot S 8.6-50 MG TAB PO SCH ×2 (08:52→20:01)
[2020-09-07] MEDS: Enoxaparin Sodium 30 MG/0.3 ML SYRINGE SC SCH ×2 (08:52→20:01)
[2020-09-07] MEDS: Saccharomyces boulardii 250 MG CAP PO SCH (08:52)
[2020-09-07] MEDS: Fluconazole In NaCl,Iso-Osm 400 MG in Premix Bag 1 BAG IVPB SCH (08:52)
--- NOTE | 2020-09-07 10:43 | RAD ---
EXAM: Chest one view: HISTORY: Follow-up ARDS COMPARISON: 09/06/2020 FINDINGS: Numerous life support tubes in place and stable. Heart size: Minimal cardiomegaly. Lungs: Bilateral vascular congestion with patchy bilateral perihilar alveolar and interstitial parenc hymal changes, stable. No pneumothorax. IMPRESSION: Bilateral perihilar parenchymal changes, stable.
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
[2020-09-07] MEDS: Dextrose 5 %-0.45 % NaCl 1,000 ML IV SCH ×2 (14:54→22:42)
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
--- NOTE | 2020-09-07 23:28 | PDOC.BPN ---
- Brief Progress Note Encounter Date: 09/07/20 Encounter Time: 22:00 Patient was seen during evening rounds in the critical care unit on full mechanical ventilatory support and sedation. No issues reported by the patients nurse. Vital signs are stable and patient is afebrile. Urinary output is adequate for age and weight. Plan of care is unchanged
[2020-09-08] MEDS ORDERED: Fentanyl CADD 100 ML ONE ×3 (00:26→18:59)
[2020-09-08] MEDS: Propofol 1,000 MG/100 ML VIAL IV PRN ×7 (01:25→22:45)
[2020-09-08] MEDS: Piperacillin/Tazobactam 2.25 GM in Sodium Chloride 0.9% 100 ML IVPB SCH ×2 (01:25→09:36)
[2020-09-08 03:38] LABS: Anion Gap 14 mmol/L (10-20); BUN (Urea Nitrogen) 51 mg/dL (8.9-20.6); Calc. Creatinine Clearance 40 mL/min (70-130); Calcium 8.5 mg/dL (7.8-10.44); Carbon Dioxide 23 mmol/L (22-29); Chloride 115 mmol/L (98-107); Glucose 125 mg/dL (70-105); Magnesium 2.8 mg/dL (1.6-2.6); Phosphorus 4.4 mg/dL (2.3-4.7); Potassium 4.1 mmol/L (3.5-5.1); Sodium 148 mmol/L (136-145)
[2020-09-08 04:00] LABS: Band 22 % (5-11); Eosinophils 4 % (0-10); Hemoglobin 7.1 g/dL (14.0-18.0); Lymphocytes 10 % (21-51); MDiff Complete? YES; Mean Corpuscular HGB CONC 33.4 g/dL (32.0-36.0); Mean Corpuscular Hemoglobin 30.3 pg (27.0-31.0); Mean Corpuscular Volume 90.9 fL (78.0-98.0); Mean Platelet Volume 6.7 fL (7.4-10.4); Monocytes 1 % (0-10); Myelocyte 2 % (0-0); Neutrophil 60 % (42-75); Platelet Count 364 thou/uL (130-400); RBC Distribution Width 13.1 % (11.5-14.5); Reactive Lymphocytes 1 % (0-10); Red Blood Cell (RBC) Count 2.33 mill/uL (4.70-6.10)
[2020-09-08] MEDS: Dextrose 5 %-0.45 % NaCl 1,000 ML IV SCH ×2 (06:06→16:19)
--- NOTE | 2020-09-08 08:11 | RAD ---
Exam: Chest one view HISTORY:Evaluate ARDS. Respiratory distress. Intubated patient. Comparison: 09/07/2020 FINDINGS: Lines and tubes: Endotracheal tube at the clavicle. There is a normal nasogastric tube as well as bhoff feeding tube. Right-sided internal jugular vascular catheter terminates in the region of the right atrium. Cardiac silhouette: Normal Aorta: Unremarkable Pulmonary vessels: Normal Costophrenic angles: Clear LUNGS: Bilateral perihilar, right and left opacities. Pneumothorax: None Osseous abnormalities: None IMPRESSION: Bilateral perihilar opacities, right greater than left.
[2020-09-08] MEDS: Saccharomyces boulardii 250 MG CAP PO SCH (09:10)
[2020-09-08] MEDS: Polyethylene Glycol 3350 17 GM Packet PO SCH (09:10)
[2020-09-08] MEDS: Senokot S 8.6-50 MG TAB PO SCH ×2 (09:10→19:49)
[2020-09-08] MEDS: Enoxaparin Sodium 30 MG/0.3 ML SYRINGE SC SCH ×2 (09:10→20:10)
[2020-09-08] MEDS: Famotidine/PF 20 mg/2ml Vial SLOW IVP SCH (09:10)
[2020-09-08] MEDS: Meropenem 500 MG in Sodium Chloride 0.9% 100 ML IVPB SCH ×2 (09:11→17:05)
[2020-09-08] MEDS: Fluconazole In NaCl,Iso-Osm 400 MG in Premix Bag 1 BAG IVPB SCH (09:12)
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
[2020-09-08] MEDS: Dextrose 5% in Water 1,000 ML IV SCH ×2 (17:04→23:58)
--- NOTE | 2020-09-08 23:50 | PDOC.BPN ---
- Brief Progress Note Encounter Date: 09/08/20 Encounter Time: 21:00 Patient was seen during evening rounds in the critical care unit on full mechanical ventilatory support and sedation. No issues reported by the patients nurse. Vital signs are stable and patient is afebrile. Urinary output is adequate for age and weight. Plan for perc trach in am. Hold tube feeds after midnight.
[2020-09-09] MEDS: Propofol 1,000 MG/100 ML VIAL IV PRN ×7 (01:08→22:41)
[2020-09-09 03:46] LABS: Anion Gap 14 mmol/L (10-20); BUN (Urea Nitrogen) 52 mg/dL (8.9-20.6); Calc. Creatinine Clearance 39 mL/min (70-130); Calcium 8.6 mg/dL (7.8-10.44); Carbon Dioxide 21 mmol/L (22-29); Chloride 114 mmol/L (98-107); Glucose 110 mg/dL (70-105); Magnesium 2.7 mg/dL (1.6-2.6); Phosphorus 5.1 mg/dL (2.3-4.7); Sodium 145 mmol/L (136-145)
[2020-09-09] MEDS ORDERED: Fentanyl CADD 100 ML ONE ×3 (03:51→20:51)
[2020-09-09 03:59] LABS: Band 16 % (5-11); Eosinophils 2 % (0-10); Hemoglobin 7.4 g/dL (14.0-18.0); Lymphocytes 7 % (21-51); MDiff Complete? YES; Mean Corpuscular HGB CONC 33.5 g/dL (32.0-36.0); Mean Corpuscular Hemoglobin 30.5 pg (27.0-31.0); Mean Platelet Volume 6.8 fL (7.4-10.4); Metamyelocyte 4 % (0-0); Monocytes 5 % (0-10); Myelocyte 5 % (0-0); Neutrophil 60 % (42-75); Platelet Count 397 thou/uL (130-400); RBC Distribution Width 13.4 % (11.5-14.5); Reactive Lymphocytes 1 % (0-10); Red Blood Cell (RBC) Count 2.43 mill/uL (4.70-6.10); White Blood Cell (WBC) Count 18.2 thou/uL (4.8-10.8)
[2020-09-09] MEDS ORDERED: Fentanyl 100 MCG/2 ML VIAL SLOW IVP PRN (06:00)
[2020-09-09] MEDS ORDERED: Lidocaine 1% w/Epinephrine 1:100K 20 ML VIAL FS SCH (06:00)
[2020-09-09] MEDS ORDERED: Vecuronium 10 MG VIAL IV SCH (06:00)
[2020-09-09] MEDS: Dextrose 5% in Water 1,000 ML IV SCH ×3 (06:10→23:30)
[2020-09-09] MEDS: Meropenem 500 MG in Sodium Chloride 0.9% 100 ML IVPB SCH ×3 (08:56→16:44)
[2020-09-09] MEDS: Ferrous Sulfate 325 MG TAB PO SCH ×2 (08:56→20:42)
[2020-09-09] MEDS: Senokot S 8.6-50 MG TAB PO SCH ×2 (08:56→20:45)
[2020-09-09] MEDS: Famotidine/PF 20 mg/2ml Vial SLOW IVP SCH (08:56)
[2020-09-09] MEDS: Ascorbic Acid 500 mg Chewable Tablet PO SCH ×2 (08:56→20:42)
[2020-09-09] MEDS: Enoxaparin Sodium 30 MG/0.3 ML SYRINGE SC SCH ×2 (08:56→20:42)
[2020-09-09] MEDS: Saccharomyces boulardii 250 MG CAP PO SCH (08:57)
[2020-09-09] MEDS: Polyethylene Glycol 3350 17 GM Packet PO SCH (08:57)
[2020-09-09] MEDS: Midazolam HCl 2 mg/2 ml Vial SLOW IVP PRN (09:48)
[2020-09-09] MEDS: Fluconazole In NaCl,Iso-Osm 400 MG in Premix Bag 1 BAG IVPB SCH (11:19)
[2020-09-09 11:55] LABS: Actual Bicarbonate (HCO3a) 19.8 mEq/L (22-28); Base Excess (BEa) -6.7 mEq/L (-2.0 to +3.0); Calcium, Ionized (arterial) 1.23 mmol/L (1.12-1.30); Carboxyhemoglobin (COHb) 0.3 gm% (0.0-3.0); Hemoglobin (Hb) 9.7 g/dL (14.0-18.0); O2 Tension (PaO2), arterial 118.7 mmHg (80.0-100.0); Potassium - ABG Lab 4.51 mmol/L (3.70-5.30); pH, Arterial 7.27 (7.35-7.45)
[2020-09-09 11:57] LABS: Puncture Site LRA
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
[2020-09-10] MEDS: Meropenem 500 MG in Sodium Chloride 0.9% 100 ML IVPB SCH ×3 (00:15→17:47)
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
[2020-09-10] MEDS ORDERED: Fentanyl CADD 0 ML ONE (06:41)
[2020-09-10] MEDS: Dextrose 5% in Water 1,000 ML IV SCH ×3 (07:09→21:26)
[2020-09-10] MEDS: Propofol 1,000 MG/100 ML VIAL IV PRN (07:25)
[2020-09-10] MEDS: Famotidine/PF 20 mg/2ml Vial SLOW IVP SCH (08:55)
[2020-09-10] MEDS: Ferrous Sulfate 325 MG TAB PO SCH ×2 (08:55→20:57)
[2020-09-10] MEDS: Ascorbic Acid 500 mg Chewable Tablet PO SCH ×2 (08:55→20:56)
[2020-09-10] MEDS: Senokot S 8.6-50 MG TAB PO SCH ×2 (08:55→20:58)
[2020-09-10] MEDS: Polyethylene Glycol 3350 17 GM Packet PO SCH (08:55)
[2020-09-10] MEDS: Enoxaparin Sodium 30 MG/0.3 ML SYRINGE SC SCH ×2 (08:55→20:58)
[2020-09-10] MEDS: Saccharomyces boulardii 250 MG CAP PO SCH (08:56)
[2020-09-10] MEDS: Famotidine 20 MG TAB PO SCH (08:57)
[2020-09-10] MEDS ORDERED: Fentanyl BOLUS 250 ML IVPB PRN (08:57)
[2020-09-10] MEDS ORDERED: Fentanyl CADD 100 ML IV SCH (09:00)
[2020-09-10] MEDS: Fluconazole In NaCl,Iso-Osm 400 MG in Premix Bag 1 BAG IVPB SCH (09:19)
[2020-09-10] MEDS: HYDROcodone/Acetaminophen 10/325 mg Tablet PO SCH ×3 (09:39→20:56)
[2020-09-10] MEDS: cloNIDine 0.2 MG TAB PO SCH ×2 (12:07→17:46)
[2020-09-10] MEDS: Morphine 4 MG/ML VIAL SLOW IVP PRN ×2 (12:08→16:10)
[2020-09-10 12:18] LABS: Anion Gap 12 mmol/L (10-20); BUN (Urea Nitrogen) 55 mg/dL (8.9-20.6); Calc. Creatinine Clearance 39 mL/min (70-130); Calcium 8.8 mg/dL (7.8-10.44); Carbon Dioxide 23 mmol/L (22-29); Chloride 111 mmol/L (98-107); Glucose 114 mg/dL (70-105); Magnesium 2.4 mg/dL (1.6-2.6); Phosphorus 4.8 mg/dL (2.3-4.7); Potassium 4.1 mmol/L (3.5-5.1); Sodium 142 mmol/L (136-145)
[2020-09-10 12:26] LABS: Band 25 % (5-11); Hemoglobin 7.7 g/dL (14.0-18.0); Lymphocytes 13 % (21-51); MDiff Complete? YES; Mean Corpuscular HGB CONC 32.3 g/dL (32.0-36.0); Mean Corpuscular Hemoglobin 29.1 pg (27.0-31.0); Mean Corpuscular Volume 90.1 fL (78.0-98.0); Mean Platelet Volume 6.9 fL (7.4-10.4); Metamyelocyte 1 % (0-0); Monocytes 12 % (0-10); Myelocyte 5 % (0-0); Neutrophil 44 % (42-75); Platelet Count 437 thou/uL (130-400); Platelet Morphology Comment Appears Increased; Polychromasia SLIGHT = 2-3 cells (100X) (0-2/hpf); RBC Distribution Width 13.9 % (11.5-14.5); Red Blood Cell (RBC) Count 2.65 mill/uL (4.70-6.10)
[2020-09-10] MEDS: Midazolam HCl 2 mg/2 ml Vial SLOW IVP PRN (13:46)
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
[2020-09-11] MEDS: cloNIDine 0.2 MG TAB PO SCH ×5 (00:08→23:37)
[2020-09-11] MEDS: Dextrose 5% in Water 1,000 ML IV SCH ×4 (01:16→21:58)
[2020-09-11] MEDS: Meropenem 500 MG in Sodium Chloride 0.9% 100 ML IVPB SCH ×2 (01:16→08:01)
[2020-09-11] MEDS: Propofol 1,000 MG/100 ML VIAL IV PRN ×2 (01:54→08:09)
[2020-09-11] MEDS: HYDROcodone/Acetaminophen 10/325 mg Tablet PO SCH ×4 (03:00→20:38)
[2020-09-11 04:22] LABS: Phosphorus 4.9 mg/dL (2.3-4.7)
[2020-09-11 04:31] LABS: Anion Gap 18 mmol/L (10-20); BUN (Urea Nitrogen) 57 mg/dL (8.9-20.6); Calc. Creatinine Clearance 40 mL/min (70-130); Calcium 8.9 mg/dL (7.8-10.44); Carbon Dioxide 17 mmol/L (22-29); Chloride 111 mmol/L (98-107); Glucose 111 mg/dL (70-105); Magnesium 2.3 mg/dL (1.6-2.6); Potassium 4.6 mmol/L (3.5-5.1); Sodium 141 mmol/L (136-145)
[2020-09-11] MEDS: Senokot S 8.6-50 MG TAB PO SCH (08:01)
[2020-09-11] MEDS: Famotidine 20 MG TAB PO SCH (08:01)
[2020-09-11] MEDS: Enoxaparin Sodium 30 MG/0.3 ML SYRINGE SC SCH ×2 (08:02→20:38)
[2020-09-11] MEDS: Ascorbic Acid 500 mg Chewable Tablet PO SCH ×2 (08:02→20:38)
[2020-09-11] MEDS: Saccharomyces boulardii 250 MG CAP PO SCH (08:02)
[2020-09-11] MEDS: Ferrous Sulfate 325 MG TAB PO SCH ×2 (08:02→20:38)
[2020-09-11] MEDS: Polyethylene Glycol 3350 17 GM Packet PO SCH (08:03)
[2020-09-11] MEDS: Fluconazole In NaCl,Iso-Osm 400 MG in Premix Bag 1 BAG IVPB SCH (08:04)
[2020-09-11] MEDS: Morphine 4 MG/ML VIAL SLOW IVP PRN ×3 (10:06→22:54)
[2020-09-11] MEDS ORDERED: Acetaminophen 650 MG/20.3 ML UDCUP PO PRN (11:55)
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
[2020-09-12] MEDS: Morphine 4 MG/ML VIAL SLOW IVP PRN ×4 (02:50→16:54)
[2020-09-12] MEDS: HYDROcodone/Acetaminophen 10/325 mg Tablet PO SCH ×5 (03:21→22:23)
[2020-09-12 03:35] LABS: #Basophils 0.1 thou/uL (0.0-0.2); #Eosinphils 0.2 thou/uL (0.0-0.7); #Lymphocytes 1.8 thou/uL (1.20-3.40); #Neutrophils 12.1 thou/uL (1.40-6.50); %Basophils 0.3 % (0.0-1.0); %Eosinophils 1.4 % (0.0-10.0); %Lymphocytes 10.9 % (21.0-51.0); %Monocytes 12.2 % (0.0-10.0); %Neutrophils 75.1 % (42.0-75.0); Hemoglobin 7.4 g/dL (14.0-18.0); Mean Corpuscular HGB CONC 32.8 g/dL (32.0-36.0); Mean Corpuscular Hemoglobin 29.4 pg (27.0-31.0); Mean Corpuscular Volume 89.7 fL (78.0-98.0); Mean Platelet Volume 7.2 fL (7.4-10.4); Platelet Count 419 thou/uL (130-400); RBC Distribution Width 13.5 % (11.5-14.5); Red Blood Cell (RBC) Count 2.52 mill/uL (4.70-6.10); White Blood Cell (WBC) Count 16.1 thou/uL (4.8-10.8)
[2020-09-12 03:53] LABS: Phosphorus 4.8 mg/dL (2.3-4.7)
[2020-09-12 03:54] LABS: ALT (SGPT) 39 U/L (8-55); AST (SGOT) 47 U/L (5-34); Albumin 2.6 g/dL (3.5-5.0); Alkaline Phosphatase 84 U/L (40-110); Bilirubin, Direct 1.3 mg/dL (0.1-0.3); Bilirubin, Total 1.5 mg/dL (0.2-1.2); Protein, Total 7.3 g/dL (6.0-8.3)
[2020-09-12] MEDS: Dextrose 5% in Water 1,000 ML IV SCH ×3 (04:09→21:38)
[2020-09-12] MEDS: cloNIDine 0.2 MG TAB PO SCH ×3 (05:48→16:53)
[2020-09-12 06:19] LABS: Anion Gap 15 mmol/L (10-20); BUN (Urea Nitrogen) 57 mg/dL (8.9-20.6); Calc. Creatinine Clearance 41 mL/min (70-130); Calcium 8.5 mg/dL (7.8-10.44); Carbon Dioxide 19 mmol/L (22-29); Chloride 109 mmol/L (98-107); Glucose 145 mg/dL (70-105); Magnesium 2.1 mg/dL (1.6-2.6); Potassium 4.2 mmol/L (3.5-5.1); Sodium 139 mmol/L (136-145)
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
[2020-09-12] MEDS: Pantoprazole 40 MG GRANULES PACKET PER TUBE SCH (08:12)
[2020-09-12] MEDS: Metamucil PACK PER TUBE SCH (08:12)
[2020-09-12] MEDS: Saccharomyces boulardii 250 MG CAP PO SCH (08:12)
[2020-09-12] MEDS: Ascorbic Acid 500 mg Chewable Tablet PO SCH ×2 (08:12→22:11)
[2020-09-12] MEDS: Enoxaparin Sodium 30 MG/0.3 ML SYRINGE SC SCH ×2 (08:12→22:11)
[2020-09-12] MEDS: Ferrous Sulfate 325 MG TAB PO SCH ×2 (08:12→22:11)
[2020-09-12] MEDS ORDERED: Lidocaine 1% (PF) 30 ML VIAL ONE ×3 (10:17→10:25)
[2020-09-12] MEDS ORDERED: Morphine 10 MG/0.5 ML ORAL SYRINGE ONE (10:22)
[2020-09-12] MEDS ORDERED: Morphine 4 MG/ML VIAL SLOW IVP SCH (10:45)
[2020-09-12] MEDS ORDERED: HYDROcodone/Acetaminophen 10/325 mg Tablet PO PRN (10:51)
[2020-09-12] MEDS ORDERED: traMADol HCl 50 MG TAB PO SCH (11:00)
[2020-09-12] MEDS: traMADol HCl 50 MG TAB PO SCH ×2 (11:24→22:10)
[2020-09-12] MEDS ORDERED: RisperDAL Oral Solution 1 MG/ML UDCUP PO SCH ×2 (12:30→21:00)
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
[2020-09-12] MEDS: risperiDONE 1 MG TAB PO SCH (22:11)
[2020-09-13] MEDS: cloNIDine 0.2 MG TAB PO SCH ×4 (00:50→17:20)
[2020-09-13] MEDS: HYDROcodone/Acetaminophen 10/325 mg Tablet PO SCH ×6 (00:51→20:52)
[2020-09-13 03:45] LABS: #Basophils 0.1 thou/uL (0.0-0.2); #Eosinphils 0.1 thou/uL (0.0-0.7); #Lymphocytes 1.6 thou/uL (1.20-3.40); #Monocytes 2.1 thou/uL (0.11-0.59); #Neutrophils 10.6 thou/uL (1.40-6.50); %Basophils 0.3 % (0.0-1.0); %Lymphocytes 10.9 % (21.0-51.0); %Monocytes 14.3 % (0.0-10.0); %Neutrophils 73.5 % (42.0-75.0); Hemoglobin 6.9 g/dL (14.0-18.0); Mean Corpuscular HGB CONC 33.2 g/dL (32.0-36.0); Mean Corpuscular Hemoglobin 29.8 pg (27.0-31.0); Mean Corpuscular Volume 89.8 fL (78.0-98.0); Mean Platelet Volume 6.6 fL (7.4-10.4); Platelet Count 501 thou/uL (130-400); RBC Distribution Width 13.3 % (11.5-14.5); Red Blood Cell (RBC) Count 2.31 mill/uL (4.70-6.10); White Blood Cell (WBC) Count 14.4 thou/uL (4.8-10.8)
[2020-09-13 04:07] LABS: Phosphorus 4.6 mg/dL (2.3-4.7)
[2020-09-13 04:08] LABS: Anion Gap 16 mmol/L (10-20); BUN (Urea Nitrogen) 60 mg/dL (8.9-20.6); Calc. Creatinine Clearance 46 mL/min (70-130); Calcium 8.4 mg/dL (7.8-10.44); Carbon Dioxide 17 mmol/L (22-29); Chloride 106 mmol/L (98-107); Glucose 131 mg/dL (70-105); Magnesium 2.2 mg/dL (1.6-2.6); Potassium 4.3 mmol/L (3.5-5.1); Sodium 135 mmol/L (136-145)
[2020-09-13] MEDS: Ferrous Sulfate 325 MG TAB PO SCH ×2 (08:18→20:51)
[2020-09-13] MEDS: Metamucil PACK PER TUBE SCH (08:18)
[2020-09-13] MEDS: traMADol HCl 50 MG TAB PO SCH ×2 (08:18→20:53)
[2020-09-13] MEDS: Pantoprazole 40 MG GRANULES PACKET PER TUBE SCH (08:18)
[2020-09-13] MEDS: Enoxaparin Sodium 30 MG/0.3 ML SYRINGE SC SCH ×2 (08:18→20:51)
[2020-09-13] MEDS: risperiDONE 1 MG TAB PO SCH (08:18)
[2020-09-13] MEDS: Morphine 4 MG/ML VIAL SLOW IVP PRN (08:18)
[2020-09-13] MEDS: Ascorbic Acid 500 mg Chewable Tablet PO SCH ×2 (08:19→20:51)
[2020-09-13] MEDS ORDERED: Sodium Bicarbonate 150 MEQ in Dextrose 5% in Water 1,000 ML IV SCH (11:30)
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
[2020-09-14] MEDS: cloNIDine 0.2 MG TAB PO SCH ×4 (01:04→17:10)
[2020-09-14] MEDS: HYDROcodone/Acetaminophen 10/325 mg Tablet PO SCH ×6 (01:05→20:43)
[2020-09-14 06:05] LABS: Phosphorus 4.5 mg/dL (2.3-4.7)
[2020-09-14 06:07] LABS: Anion Gap 14 mmol/L (10-20); BUN (Urea Nitrogen) 64 mg/dL (8.9-20.6); Calc. Creatinine Clearance 50 mL/min (70-130); Calcium 8.4 mg/dL (7.8-10.44); Carbon Dioxide 24 mmol/L (22-29); Chloride 107 mmol/L (98-107); Glucose 120 mg/dL (70-105); Magnesium 2.3 mg/dL (1.6-2.6); Potassium 4.1 mmol/L (3.5-5.1); Sodium 141 mmol/L (136-145)
[2020-09-14] MEDS: Pantoprazole 40 MG GRANULES PACKET PER TUBE SCH (08:13)
[2020-09-14] MEDS: Enoxaparin Sodium 30 MG/0.3 ML SYRINGE SC SCH ×2 (08:13→20:34)
[2020-09-14] MEDS: traMADol HCl 50 MG TAB PO SCH ×2 (08:13→20:41)
[2020-09-14] MEDS: Metamucil PACK PER TUBE SCH (08:13)
[2020-09-14] MEDS: Ferrous Sulfate 325 MG TAB PO SCH ×2 (08:13→20:45)
[2020-09-14] MEDS: Ascorbic Acid 500 mg Chewable Tablet PO SCH ×2 (08:13→20:40)
[2020-09-14 08:27] LABS: #Eosinphils 0.4 thou/uL (0.0-0.7); #Lymphocytes 1.4 thou/uL (1.20-3.40); #Monocytes 1.1 thou/uL (0.11-0.59); #Neutrophils 7.6 thou/uL (1.40-6.50); %Basophils 0.4 % (0.0-1.0); %Eosinophils 3.8 % (0.0-10.0); %Monocytes 10.7 % (0.0-10.0); %Neutrophils 72.1 % (42.0-75.0); Hemoglobin 7.6 g/dL (14.0-18.0); Mean Corpuscular HGB CONC 33.1 g/dL (32.0-36.0); Mean Corpuscular Hemoglobin 30.4 pg (27.0-31.0); Mean Corpuscular Volume 92.1 fL (78.0-98.0); Mean Platelet Volume 6.3 fL (7.4-10.4); Platelet Count 528 thou/uL (130-400); RBC Distribution Width 13.2 % (11.5-14.5); White Blood Cell (WBC) Count 10.5 thou/uL (4.8-10.8)
[2020-09-14] MEDS: Scopolamine 1.5 mg/72 hour Patch TOP SCH (09:58)
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
[2020-09-15] MEDS: cloNIDine 0.2 MG TAB PO SCH ×2 (01:34→05:25)
[2020-09-15] MEDS: HYDROcodone/Acetaminophen 10/325 mg Tablet PO SCH ×4 (01:35→20:27)
[2020-09-15 05:13] LABS: #Basophils 0.1 thou/uL (0.0-0.2); #Eosinphils 0.4 thou/uL (0.0-0.7); #Lymphocytes 1.7 thou/uL (1.20-3.40); #Monocytes 1.1 thou/uL (0.11-0.59); #Neutrophils 7.5 thou/uL (1.40-6.50); %Basophils 0.5 % (0.0-1.0); %Eosinophils 3.5 % (0.0-10.0); %Monocytes 10.4 % (0.0-10.0); %Neutrophils 69.6 % (42.0-75.0); Hemoglobin 7.3 g/dL (14.0-18.0); Mean Corpuscular HGB CONC 32.8 g/dL (32.0-36.0); Mean Corpuscular Hemoglobin 29.8 pg (27.0-31.0); Mean Platelet Volume 6.8 fL (7.4-10.4); Platelet Count 513 thou/uL (130-400); RBC Distribution Width 13.2 % (11.5-14.5); Red Blood Cell (RBC) Count 2.45 mill/uL (4.70-6.10); White Blood Cell (WBC) Count 10.8 thou/uL (4.8-10.8)
[2020-09-15 05:33] LABS: Phosphorus 4.9 mg/dL (2.3-4.7)
[2020-09-15 05:35] LABS: Anion Gap 17 mmol/L (10-20); BUN (Urea Nitrogen) 69 mg/dL (8.9-20.6); Calc. Creatinine Clearance 58 mL/min (70-130); Calcium 8.7 mg/dL (7.8-10.44); Carbon Dioxide 23 mmol/L (22-29); Chloride 110 mmol/L (98-107); Glucose 132 mg/dL (70-105); Magnesium 2.3 mg/dL (1.6-2.6); Potassium 5.2 mmol/L (3.5-5.1); Sodium 145 mmol/L (136-145)
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
[2020-09-15] MEDS: traMADol HCl 50 MG TAB PO SCH ×2 (09:19→20:29)
[2020-09-15] MEDS: Enoxaparin Sodium 30 MG/0.3 ML SYRINGE SC SCH ×2 (09:19→20:27)
[2020-09-15] MEDS: Ferrous Sulfate 325 MG TAB PO SCH ×2 (09:20→20:28)
[2020-09-15] MEDS: Amlodipine 10 MG TAB PO SCH (09:20)
[2020-09-15] MEDS: Ascorbic Acid 500 mg Chewable Tablet PO SCH ×2 (09:20→20:28)
[2020-09-15] MEDS: Metamucil PACK PER TUBE SCH (09:23)
[2020-09-15] MEDS: Pantoprazole 40 MG GRANULES PACKET PER TUBE SCH (09:23)
[2020-09-15 12:45] LABS: Potassium 4.6 mmol/L (3.5-5.1)
[2020-09-15 12:52] LABS: Anion Gap 17 mmol/L (10-20); BUN (Urea Nitrogen) 68 mg/dL (8.9-20.6); Calc. Creatinine Clearance 58 mL/min (70-130); Calcium 9.2 mg/dL (7.8-10.44); Carbon Dioxide 24 mmol/L (22-29); Chloride 109 mmol/L (98-107); Glucose 132 mg/dL (70-105); Potassium 4.6 mmol/L (3.5-5.1); Sodium 145 mmol/L (136-145)
--- NOTE | 2020-09-15 12:52 | PRG ---
DATE OF SERVICE: SUBJECTIVE: A 45-year-old gentleman being seen for acute kidney injury. The patient denied nausea or chest pain. PHYSICAL EXAMINATION: GENERAL: The patient is awake and alert. VITAL SIGNS: Afebrile, pulse 75, breathing at 16, blood pressure 159/70. HEENT: Head normocephalic and atraumatic. Eyes intact, no ulcers. Nose intact, no ulcers. Ears intact, no ulcers. NECK: Supple. No JVD. CHEST: Symmetrical and clear. CARDIOVASCULAR: Shows S1 and S2, no rub, no murmur. GASTROINTESTINAL: Abdomen is soft, bowel sounds positive. EXTREMITIES: Show no edema or ulcers. SKIN: Shows no rash or petechiae. MUSCULOSKELETAL: Shows no joint swelling or stiffness. GENITOURINARY: Shows no Charles or CVA tenderness. NEUROLOGIC: Motor intact. Cranial nerves intact. LABORATORY DATA: Labs show hemoglobin 7.3. Potassium is 5.2, creatinine 3.0. ASSESSMENT AND PLAN: 1. Chronic kidney disease stage 4, stable. 2. Hypertension, stable. 3. Anemia, stable. 4. Hyperkalemia, recommend low-potassium diet. Recheck potassium. Job ID: [id number]
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
[2020-09-16] MEDS: HYDROcodone/Acetaminophen 10/325 mg Tablet PO SCH ×7 (00:31→21:37)
[2020-09-16 06:10] LABS: #Basophils 0.1 thou/uL (0.0-0.2); #Eosinphils 0.4 thou/uL (0.0-0.7); #Lymphocytes 1.8 thou/uL (1.20-3.40); #Neutrophils 8.2 thou/uL (1.40-6.50); %Basophils 1.1 % (0.0-1.0); %Eosinophils 3.3 % (0.0-10.0); %Lymphocytes 15.3 % (21.0-51.0); %Monocytes 8.5 % (0.0-10.0); %Neutrophils 71.8 % (42.0-75.0); Hemoglobin 8.2 g/dL (14.0-18.0); Mean Corpuscular HGB CONC 31.9 g/dL (32.0-36.0); Mean Corpuscular Hemoglobin 28.8 pg (27.0-31.0); Mean Corpuscular Volume 90.4 fL (78.0-98.0); Mean Platelet Volume 6.3 fL (7.4-10.4); Platelet Count 652 thou/uL (130-400); RBC Distribution Width 13.3 % (11.5-14.5); Red Blood Cell (RBC) Count 2.86 mill/uL (4.70-6.10); White Blood Cell (WBC) Count 11.4 thou/uL (4.8-10.8)
[2020-09-16 06:29] LABS: Phosphorus 4.1 mg/dL (2.3-4.7)
[2020-09-16 06:31] LABS: Anion Gap 16 mmol/L (10-20); BUN (Urea Nitrogen) 55 mg/dL (8.9-20.6); Calc. Creatinine Clearance 65 mL/min (70-130); Calcium 8.9 mg/dL (7.8-10.44); Carbon Dioxide 23 mmol/L (22-29); Chloride 105 mmol/L (98-107); Glucose 95 mg/dL (70-105); Potassium 4.4 mmol/L (3.5-5.1); Sodium 140 mmol/L (136-145)
[2020-09-16] MEDS: hydrALAZINE 20 MG/ML VIAL SLOW IVP PRN (06:42)
[2020-09-16] MEDS: Morphine 4 MG/ML VIAL SLOW IVP PRN (07:10)
[2020-09-16] MEDS ORDERED: Furosemide 40 MG TAB PO SCH (09:19)
[2020-09-16] MEDS: Ascorbic Acid 500 mg Chewable Tablet PO SCH ×2 (09:52→21:36)
[2020-09-16] MEDS: traMADol HCl 50 MG TAB PO SCH ×2 (09:53→21:37)
[2020-09-16] MEDS: Ferrous Sulfate 325 MG TAB PO SCH ×2 (09:53→21:36)
[2020-09-16] MEDS: Amlodipine 10 MG TAB PO SCH (09:54)
[2020-09-16] MEDS: Enoxaparin Sodium 30 MG/0.3 ML SYRINGE SC SCH ×2 (09:55→21:37)
[2020-09-16] MEDS: Metamucil PACK PER TUBE SCH ×2 (10:03→10:06)
[2020-09-16] MEDS: Pantoprazole 40 MG GRANULES PACKET PER TUBE SCH (10:10)
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
--- NOTE | 2020-09-16 15:38 | PRG ---
DATE OF SERVICE: 09/16/2020 SUBJECTIVE: A 45-year-old gentleman, being seen for acute kidney injury. The patient denied any nausea, vomiting, or chest pain. PHYSICAL EXAMINATION: GENERAL: The patient is awake and alert. VITAL SIGNS: Afebrile, pulse 80, breathing at 16, blood pressure 146/88. HEENT: Head normocephalic and atraumatic. Eyes intact, no ulcers. Nose intact, no ulcers. Ears intact, no ulcers. NECK: Supple. No JVD. CHEST: Symmetrical and clear. CARDIOVASCULAR: Shows S1 and S2, no rub, no murmur. GASTROINTESTINAL: Abdomen is soft, bowel sounds positive. EXTREMITIES: Show no edema or ulcers. SKIN: Shows no rash or petechiae. MUSCULOSKELETAL: Shows no joint swelling or stiffness. GENITOURINARY: Shows no Charles or CVA tenderness. NEUROLOGIC: Motor intact. Cranial nerves intact. LABORATORY DATA: Hemoglobin 8.2. Creatinine 2.6. ASSESSMENT AND PLAN: 1. Acute kidney injury, improved. 2. Chronic kidney disease, stage 3, stable. 3. Hypertension, stable. 4. Anemia, stable. Medication based on GFR appropriate. No indication for dialysis. Job ID: [id number]
[2020-09-17] MEDS: HYDROcodone/Acetaminophen 10/325 mg Tablet PO SCH ×5 (00:37→17:31)
--- NOTE | 2020-09-17 00:59 | PDOC.BPN ---
- Brief Progress Note Encounter Date: 09/16/20 Encounter Time: 23:40 Patient was seen during evening rounds on the surgical floor resting comfortably in no distress. RT at BS giving neb tx, Pt is tolerating trach collar. No issues reported by the patients nurse. Vital signs are stable and patient is afebrile. Plan of care is unchanged.
[2020-09-17 06:26] LABS: #Basophils 0.1 thou/uL (0.0-0.2); #Eosinphils 0.4 thou/uL (0.0-0.7); #Monocytes 0.8 thou/uL (0.11-0.59); #Neutrophils 6.1 thou/uL (1.40-6.50); %Basophils 1.3 % (0.0-1.0); %Eosinophils 4.3 % (0.0-10.0); %Lymphocytes 21.1 % (21.0-51.0); %Monocytes 8.9 % (0.0-10.0); %Neutrophils 64.4 % (42.0-75.0); Hemoglobin 9.5 g/dL (14.0-18.0); Mean Corpuscular HGB CONC 32.5 g/dL (32.0-36.0); Mean Corpuscular Hemoglobin 29.3 pg (27.0-31.0); Mean Corpuscular Volume 90.2 fL (78.0-98.0); Mean Platelet Volume 6.8 fL (7.4-10.4); Platelet Count 692 thou/uL (130-400); RBC Distribution Width 13.2 % (11.5-14.5); Red Blood Cell (RBC) Count 3.23 mill/uL (4.70-6.10); White Blood Cell (WBC) Count 9.5 thou/uL (4.8-10.8)
[2020-09-17 06:52] LABS: Phosphorus 4.7 mg/dL (2.3-4.7)
[2020-09-17 06:56] LABS: Anion Gap 20 mmol/L (10-20); BUN (Urea Nitrogen) 46 mg/dL (8.9-20.6); Calc. Creatinine Clearance 65 mL/min (70-130); Calcium 9.4 mg/dL (7.8-10.44); Carbon Dioxide 24 mmol/L (22-29); Chloride 101 mmol/L (98-107); Glucose 94 mg/dL (70-105); Magnesium 1.9 mg/dL (1.6-2.6); Potassium 4.3 mmol/L (3.5-5.1); Sodium 141 mmol/L (136-145)
[2020-09-17] MEDS ORDERED: Magnesium 2 GM/50 ML 2 GM in Premix Bag 1 BAG IVPB SCH (07:45)
[2020-09-17] MEDS: Scopolamine 1.5 mg/72 hour Patch TOP SCH (08:45)
[2020-09-17] MEDS: Ferrous Sulfate 325 MG TAB PO SCH ×2 (10:03→20:01)
[2020-09-17] MEDS: traMADol HCl 50 MG TAB PO SCH ×2 (10:04→20:01)
[2020-09-17] MEDS: Ascorbic Acid 500 mg Chewable Tablet PO SCH ×2 (10:04→20:01)
[2020-09-17] MEDS: Amlodipine 10 MG TAB PO SCH (10:04)
[2020-09-17] MEDS: Enoxaparin Sodium 30 MG/0.3 ML SYRINGE SC SCH ×2 (10:04→20:01)
[2020-09-17] MEDS: Metamucil PACK PER TUBE SCH (10:05)
[2020-09-17] MEDS ORDERED: Pantoprazole 40 MG GRANULES PACKET PO SCH (10:15)
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
--- NOTE | 2020-09-17 13:12 | CT ---
CT Abdomen Pelvis WO Con History: Abdominal pain Comparison: None. Findings: Mild atelectasis within the lung bases. No pericardial effusion. No significant free intraperitoneal gas. No significant free intraperitoneal fluid. The colon is intact. Small infiltration on the omental fat likely from numerous previous exploratory laparotomies. Likely very large laceration with necrosis within what remains of hepatic segments 2 and 3 as well as hepatic segment 5 and 6. Enteric contrast is seen transiting throughout the stomach and small bowel without any leak. No fluid collection within the abdomen or pelvis. Detailed hepatic laceration evaluation is limited without intravenous contrast. The aortic contour is nonaneurysmal. No retroperitoneal periaortic adenopathy. Impression: 1. No evidence for residual bowel injury. 2. Extensive linear hypodensity throughout what remains hepatic segments 2, 3 and 4 along with lacera tion and hematoma/necrosis within hepatic segments 5 and 6. No significant perihepatic fluid. 3. No fluid collection within the abdomen or pelvis. 4. No oral contrast leak. 5. No obstructive uropathy.
[2020-09-17 13:35] VITALS: BMI 43.1
[2020-09-17] MEDS ORDERED: Iopamidol 370 76% 50 ML VIAL FS ONE (14:19)
--- NOTE | 2020-09-17 16:14 | PRG ---
DATE OF SERVICE: 09/17/2020 SUBJECTIVE: A 45-year-old gentleman, being seen for acute kidney injury. The patient denied any nausea, vomiting, or chest pain. PHYSICAL EXAMINATION: GENERAL: The patient is awake and alert. VITAL SIGNS: Afebrile, pulse 70, breathing at 16, blood pressure 152/91. HEENT: Head normocephalic and atraumatic. Eyes intact, no ulcers. Nose intact, no ulcers. Ears intact, no ulcers. NECK: Supple. No JVD. CHEST: Symmetrical and clear. CARDIOVASCULAR: Shows S1 and S2, no rub, no murmur. GASTROINTESTINAL: Abdomen is soft, bowel sounds positive. EXTREMITIES: Show no edema or ulcers. SKIN: Shows no rash or petechiae. MUSCULOSKELETAL: Shows no joint swelling or stiffness. GENITOURINARY: Shows no Charles or CVA tenderness. NEUROLOGIC: Motor intact. Cranial nerves intact. LABORATORY STUDIES: Hemoglobin 9.5, creatinine 2.6. ASSESSMENT AND PLAN: 1. Chronic kidney disease, stage 3, stable. 2. Hypertension, stable. 3. Anemia, stable. No indication for dialysis. Job ID: [id number]
[2020-09-17] MEDS ORDERED: HYDROcodone/Acetaminophen 10/325 mg Tablet PO PRN (18:26)
[2020-09-18 05:55] LABS: #Basophils 0.1 thou/uL (0.0-0.2); #Monocytes 0.9 thou/uL (0.11-0.59); #Neutrophils 7.1 thou/uL (1.40-6.50); %Basophils 1.3 % (0.0-1.0); %Eosinophils 8.7 % (0.0-10.0); %Lymphocytes 18.2 % (21.0-51.0); %Monocytes 7.9 % (0.0-10.0); %Neutrophils 63.9 % (42.0-75.0); Hemoglobin 8.4 g/dL (14.0-18.0); Mean Corpuscular HGB CONC 33.9 g/dL (32.0-36.0); Mean Corpuscular Hemoglobin 30.2 pg (27.0-31.0); Mean Corpuscular Volume 89.3 fL (78.0-98.0); Mean Platelet Volume 6.4 fL (7.4-10.4); Platelet Count 548 thou/uL (130-400); RBC Distribution Width 13.1 % (11.5-14.5); Red Blood Cell (RBC) Count 2.78 mill/uL (4.70-6.10); White Blood Cell (WBC) Count 11.1 thou/uL (4.8-10.8)
[2020-09-18 06:06] LABS: Phosphorus 4.4 mg/dL (2.3-4.7)
[2020-09-18 06:14] LABS: Anion Gap 16 mmol/L (10-20); BUN (Urea Nitrogen) 33 mg/dL (8.9-20.6); Calc. Creatinine Clearance 67 mL/min (70-130); Calcium 8.5 mg/dL (7.8-10.44); Carbon Dioxide 25 mmol/L (22-29); Chloride 99 mmol/L (98-107); Glucose 91 mg/dL (70-105); Magnesium 2.2 mg/dL (1.6-2.6); Potassium 4.1 mmol/L (3.5-5.1); Sodium 136 mmol/L (136-145)
[2020-09-18] MEDS: Pantoprazole 40 MG GRANULES PACKET PO SCH (09:38)
[2020-09-18] MEDS: Ferrous Sulfate 325 MG TAB PO SCH ×2 (09:38→22:17)
[2020-09-18] MEDS: Enoxaparin Sodium 30 MG/0.3 ML SYRINGE SC SCH ×2 (09:38→22:23)
[2020-09-18] MEDS: traMADol HCl 50 MG TAB PO SCH ×2 (09:39→22:16)
[2020-09-18] MEDS: Amlodipine 10 MG TAB PO SCH (09:39)
[2020-09-18] MEDS: Ascorbic Acid 500 mg Chewable Tablet PO SCH ×2 (09:39→22:17)
[2020-09-18] MEDS: Metamucil PACK PER TUBE SCH (09:41)
[2020-09-18] MEDS ORDERED: Furosemide 40 MG/4 ML VIAL SLOW IVP SCH (10:15)
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
--- NOTE | 2020-09-18 15:15 | PRG ---
DATE OF SERVICE: 09/18/2020 SUBJECTIVE: This is a 45-year-old gentleman being seen for acute kidney injury. The patient denied nausea, vomiting, or chest pain. PHYSICAL EXAMINATION: General: The patient is awake and alert. Vital Signs: Afebrile, pulse 77, breathing at 16, blood pressure 155/89. HEENT: Head normocephalic and atraumatic. Eyes intact, no ulcers. Nose intact, no ulcers. Ears intact, no ulcers. Neck: Supple. No JVD. Chest: Symmetrical and clear. Cardiovascular: Shows S1 and S2, no rub, no murmur. Gastrointestinal: Abdomen is soft, bowel sounds positive. Extremities: Show no edema or ulcers. Skin: Shows no rash or petechiae. Musculoskeletal: Shows no joint swelling or stiffness. Genitourinary: Shows no Charles or CVA tenderness. Neurologic: Motor intact. Cranial nerves intact. LABORATORY DATA: Hemoglobin 8.4. Creatinine 2.6. ASSESSMENT AND PLAN: 1. Acute kidney injury with chronic kidney disease stage 4, stable. 2. Hypertension, stable. 3. Anemia, stable. 4. Medication based on GFR appropriate. Job ID: [id number]
[2020-09-19 05:23] LABS: #Basophils 0.1 thou/uL (0.0-0.2); #Eosinphils 0.7 thou/uL (0.0-0.7); #Monocytes 0.9 thou/uL (0.11-0.59); #Neutrophils 7.3 thou/uL (1.40-6.50); %Basophils 0.8 % (0.0-1.0); %Eosinophils 6.2 % (0.0-10.0); %Neutrophils 66.9 % (42.0-75.0); Hemoglobin 8.5 g/dL (14.0-18.0); Mean Corpuscular HGB CONC 34.1 g/dL (32.0-36.0); Mean Corpuscular Hemoglobin 30.2 pg (27.0-31.0); Mean Corpuscular Volume 88.5 fL (78.0-98.0); Mean Platelet Volume 6.4 fL (7.4-10.4); Platelet Count 513 thou/uL (130-400); RBC Distribution Width 13.1 % (11.5-14.5); Red Blood Cell (RBC) Count 2.81 mill/uL (4.70-6.10); White Blood Cell (WBC) Count 10.9 thou/uL (4.8-10.8)
[2020-09-19 05:25] LABS: Phosphorus 4.1 mg/dL (2.3-4.7)
[2020-09-19 05:27] LABS: Anion Gap 16 mmol/L (10-20); BUN (Urea Nitrogen) 28 mg/dL (8.9-20.6); Calc. Creatinine Clearance 64 mL/min (70-130); Calcium 8.4 mg/dL (7.8-10.44); Carbon Dioxide 24 mmol/L (22-29); Chloride 97 mmol/L (98-107); Glucose 121 mg/dL (70-105); Magnesium 1.9 mg/dL (1.6-2.6); Potassium 3.9 mmol/L (3.5-5.1); Sodium 133 mmol/L (136-145)
[2020-09-19] MEDS ORDERED: Magnesium Sulfate 2 GM in Sodium Chloride 0.9% 100 ML IV SCH (07:45)
[2020-09-19] MEDS ORDERED: Magnesium 2 GM/50 ML 2 GM in Premix Bag 1 BAG IVPB SCH (07:45)
[2020-09-19] MEDS: Enoxaparin Sodium 30 MG/0.3 ML SYRINGE SC SCH ×2 (08:27→20:05)
[2020-09-19] MEDS: Ascorbic Acid 500 mg Chewable Tablet PO SCH ×2 (08:27→20:05)
[2020-09-19] MEDS: Pantoprazole 40 MG GRANULES PACKET PO SCH (08:27)
[2020-09-19] MEDS: Ferrous Sulfate 325 MG TAB PO SCH ×2 (08:28→20:05)
[2020-09-19] MEDS: traMADol HCl 50 MG TAB PO SCH ×2 (08:28→20:05)
[2020-09-19] MEDS: Amlodipine 10 MG TAB PO SCH (08:29)
[2020-09-19] MEDS: Metamucil PACK PER TUBE SCH (08:29)
--- NOTE | 2020-09-19 12:09 | PRG ---
DATE OF SERVICE: 09/19/2020 SUBJECTIVE: A 45-year-old gentleman, being seen for acute kidney injury. The patient denies any nausea, vomiting, or chest pain. PHYSICAL EXAMINATION: GENERAL: The patient is awake and alert. VITAL SIGNS: Pulse 75, breathing 16, blood pressure 146/76. HEENT: Head normocephalic and atraumatic. Eyes intact, no ulcers. Nose intact, no ulcers. Ears intact, no ulcers. NECK: Supple. No JVD. CHEST: Symmetrical and clear. CARDIOVASCULAR: Shows S1 and S2, no rub, no murmur. GASTROINTESTINAL: Abdomen is soft, bowel sounds positive. EXTREMITIES: Show no edema or ulcers. SKIN: Shows no rash or petechiae. MUSCULOSKELETAL: Shows no joint swelling or stiffness. GENITOURINARY: Shows no Charles or CVA tenderness. NEUROLOGIC: Motor intact. Cranial nerves intact. LABORATORY DATA: Hemoglobin 8.5. Creatinine 2.7. ASSESSMENT: 1. Acute kidney injury with chronic kidney disease stage 3, stable. 2. Hypertension, stable. 3. Anemia, stable. 4. Medication based on GFR appropriate. No indication for dialysis at this time. Job ID: [id number]
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
[2020-09-20 05:03] LABS: #Basophils 0.1 thou/uL (0.0-0.2); #Eosinphils 0.7 thou/uL (0.0-0.7); #Lymphocytes 2.1 thou/uL (1.20-3.40); #Neutrophils 6.5 thou/uL (1.40-6.50); %Basophils 1.2 % (0.0-1.0); %Eosinophils 7.1 % (0.0-10.0); %Lymphocytes 20.5 % (21.0-51.0); %Monocytes 9.2 % (0.0-10.0); Hemoglobin 8.6 g/dL (14.0-18.0); Mean Corpuscular HGB CONC 33.7 g/dL (32.0-36.0); Mean Corpuscular Hemoglobin 29.8 pg (27.0-31.0); Mean Corpuscular Volume 88.2 fL (78.0-98.0); Mean Platelet Volume 6.2 fL (7.4-10.4); Platelet Count 489 thou/uL (130-400); Red Blood Cell (RBC) Count 2.89 mill/uL (4.70-6.10); White Blood Cell (WBC) Count 10.4 thou/uL (4.8-10.8)
[2020-09-20 05:24] LABS: Anion Gap 16 mmol/L (10-20); BUN (Urea Nitrogen) 24 mg/dL (8.9-20.6); Calc. Creatinine Clearance 72 mL/min (70-130); Calcium 8.5 mg/dL (7.8-10.44); Carbon Dioxide 23 mmol/L (22-29); Chloride 99 mmol/L (98-107); Glucose 104 mg/dL (70-105); Magnesium 2.1 mg/dL (1.6-2.6); Phosphorus 4.4 mg/dL (2.3-4.7); Potassium 3.9 mmol/L (3.5-5.1); Sodium 134 mmol/L (136-145)
[2020-09-20] MEDS: Ferrous Sulfate 325 MG TAB PO SCH ×2 (08:56→21:15)
[2020-09-20] MEDS: Amlodipine 10 MG TAB PO SCH (08:56)
[2020-09-20] MEDS: Ascorbic Acid 500 mg Chewable Tablet PO SCH ×2 (08:56→21:17)
[2020-09-20] MEDS: Pantoprazole 40 MG GRANULES PACKET PO SCH (08:57)
[2020-09-20] MEDS: Enoxaparin Sodium 30 MG/0.3 ML SYRINGE SC SCH ×2 (08:57→21:15)
[2020-09-20] MEDS: traMADol HCl 50 MG TAB PO SCH ×2 (08:57→21:17)
[2020-09-20] MEDS: Metamucil PACK PER TUBE SCH (08:58)
--- NOTE | 2020-09-20 12:27 | PRG ---
DATE OF SERVICE: 09/20/2020 SUBJECTIVE: A 45-year-old gentleman, being seen for acute kidney injury. The patient denies any nausea, vomiting, or chest pain. PHYSICAL EXAMINATION: General: The patient is awake and alert. Vital Signs: Afebrile, pulse 75, breathing at 16, blood pressure 119/80. HEENT: Head normocephalic and atraumatic. Eyes intact, no ulcers. Nose intact, no ulcers. Ears intact, no ulcers. Neck: Supple. No JVD. Chest: Symmetrical and clear. Cardiovascular: Shows S1 and S2, no rub, no murmur. Gastrointestinal: Abdomen is soft, bowel sounds positive. Extremities: Show no edema or ulcers. Skin: Shows no rash or petechiae. Musculoskeletal: Shows no joint swelling or stiffness. Genitourinary: Shows no Charles or CVA tenderness. Neurologic: Motor intact. Cranial nerves intact. LABORATORY DATA: Labs show creatinine is 2.4. ASSESSMENT: 1. Acute kidney injury, improved. 2. CKD, stage 3, stable. 3. Hypertension, stable. 4. Anemia, stable. No indication for dialysis at this time. Job ID: [id number]
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
[2020-09-21 05:21] LABS: Anion Gap 19 mmol/L (10-20); BUN (Urea Nitrogen) 21 mg/dL (8.9-20.6); Calc. Creatinine Clearance 72 mL/min (70-130); Calcium 8.9 mg/dL (7.8-10.44); Carbon Dioxide 18 mmol/L (22-29); Chloride 99 mmol/L (98-107); Glucose 104 mg/dL (70-105); Magnesium 1.9 mg/dL (1.6-2.6); Phosphorus 4.4 mg/dL (2.3-4.7); Potassium 4.9 mmol/L (3.5-5.1); Sodium 131 mmol/L (136-145)
[2020-09-21] MEDS: Amlodipine 10 MG TAB PO SCH (08:26)
[2020-09-21] MEDS: Enoxaparin Sodium 30 MG/0.3 ML SYRINGE SC SCH ×2 (08:26→20:49)
[2020-09-21] MEDS: Metamucil PACK PER TUBE SCH (08:29)
[2020-09-21] MEDS: Ascorbic Acid 500 mg Chewable Tablet PO SCH ×2 (08:29→23:45)
[2020-09-21] MEDS: Pantoprazole 40 MG GRANULES PACKET PO SCH (08:29)
[2020-09-21] MEDS: Ferrous Sulfate 325 MG TAB PO SCH ×2 (08:29→23:45)
[2020-09-21] MEDS: traMADol HCl 50 MG TAB PO SCH ×2 (08:30→23:45)
--- NOTE | 2020-09-21 11:20 | PRG ---
DATE OF SERVICE: 09/21/2020 SUBJECTIVE: A 45-year-old gentleman being seen for acute kidney injury. The patient denies nausea, vomiting, or chest pain. PHYSICAL EXAMINATION: GENERAL: The patient is awake and alert. VITAL SIGNS: Pulse 75, breathing 16, blood pressure was 126/77. HEENT: Head normocephalic and atraumatic. Eyes intact, no ulcers. Nose intact, no ulcers. Ears intact, no ulcers. Neck: Supple. No JVD. Chest: Symmetrical and clear. Cardiovascular: Shows S1 and S2, no rub, no murmur. Gastrointestinal: Abdomen is soft, bowel sounds positive. Extremities: Show no edema or ulcers. Skin: Shows no rash or petechiae. Musculoskeletal: Shows no joint swelling or stiffness. Genitourinary: Shows no Charles or CVA tenderness. Neurologic: Motor intact. Cranial nerves intact. LABORATORY DATA: Reviewed today. ASSESSMENT: 1. Stage 3 chronic kidney disease, stable. 2. Hypertension, stable. 3. Anemia, stable. 4. Medication based on GFR appropriate. 5. No indication for dialysis. Job ID: [id number]
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
[2020-09-22] MEDS ORDERED: Ascorbic Acid 500 mg Chewable Tablet ONE (08:39)
[2020-09-22] MEDS ORDERED: traMADol HCl 50 MG TAB ONE (08:39)
[2020-09-22] MEDS: Pantoprazole 40 MG GRANULES PACKET PO SCH (08:54)
[2020-09-22] MEDS: traMADol HCl 50 MG TAB PO SCH ×2 (08:54→20:58)
[2020-09-22] MEDS: Amlodipine 10 MG TAB PO SCH (08:54)
[2020-09-22] MEDS: Enoxaparin Sodium 30 MG/0.3 ML SYRINGE SC SCH ×2 (08:54→20:59)
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
[2020-09-22 15:50] LABS: Anion Gap 17 mmol/L (10-20); BUN (Urea Nitrogen) 19 mg/dL (8.9-20.6); Calc. Creatinine Clearance 80 mL/min (70-130); Calcium 8.8 mg/dL (7.8-10.44); Carbon Dioxide 22 mmol/L (22-29); Chloride 96 mmol/L (98-107); Glucose 85 mg/dL (70-105); Magnesium 1.9 mg/dL (1.6-2.6); Phosphorus 4.2 mg/dL (2.3-4.7); Sodium 131 mmol/L (136-145)
[2020-09-22 16:28] LABS: Bilirubin Negative (Negative); Blood, Urine Negative (Negative); Clarity Clear (Clear); Glucose, Urine (Dipstick) Normal (Negative); Ketone, Urine Negative (Negative); Leukocyte Negative Leu/uL (Negative); Nitrite Negative (Negative); Protein, Urine (Dipstick) Negative (Neg-Trace); Specific Gravity, Urine 1.007 (1.002-1.036); Urobilinogen Normal mg/dL (Less than 2); pH, Urine 6.5 (5.0-9.0)
[2020-09-22] MEDS: Ascorbic Acid 500 mg Chewable Tablet PO SCH ×2 (16:33→20:59)
[2020-09-22] MEDS: Ferrous Sulfate 325 MG TAB PO SCH ×2 (16:34→20:59)
[2020-09-22] MEDS: Metamucil PACK PER TUBE SCH (16:35)
[2020-09-22 19:18] LABS: #Basophils 0.1 thou/uL (0.0-0.2); #Eosinphils 0.8 thou/uL (0.0-0.7); #Lymphocytes 2.2 thou/uL (1.20-3.40); #Monocytes 0.8 thou/uL (0.11-0.59); #Neutrophils 6.5 thou/uL (1.40-6.50); %Basophils 1.1 % (0.0-1.0); %Eosinophils 7.3 % (0.0-10.0); %Lymphocytes 21.1 % (21.0-51.0); %Neutrophils 62.5 % (42.0-75.0); Hemoglobin 9.5 g/dL (14.0-18.0); Mean Corpuscular HGB CONC 33.2 g/dL (32.0-36.0); Mean Corpuscular Volume 90.3 fL (78.0-98.0); Mean Platelet Volume 6.8 fL (7.4-10.4); Platelet Count 442 thou/uL (130-400); RBC Distribution Width 13.1 % (11.5-14.5); Red Blood Cell (RBC) Count 3.18 mill/uL (4.70-6.10); White Blood Cell (WBC) Count 10.4 thou/uL (4.8-10.8)
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
[2020-09-23] MEDS: Metamucil PACK PER TUBE SCH (07:53)
[2020-09-23] MEDS: Enoxaparin Sodium 30 MG/0.3 ML SYRINGE SC SCH (07:53)
[2020-09-23] MEDS: Ascorbic Acid 500 mg Chewable Tablet PO SCH (07:53)
[2020-09-23] MEDS: Ferrous Sulfate 325 MG TAB PO SCH (07:53)
[2020-09-23] MEDS: Amlodipine 10 MG TAB PO SCH (07:53)
[2020-09-23] MEDS: Pantoprazole 40 MG GRANULES PACKET PO SCH (08:20)
[2020-09-23 11:47] VITALS: BP 144/94; TEMP 97.6
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
== END 2020-09-23 13:40 | disposition home or self-care (01) | DRG 3 ==
LOC: ERS 02:15 → ERHOLD 03:32 → EEVIPCON 03:32 → IMCU/EMU 17:19 → SURG A 09-16 14:11
PROVIDERS: ADMIT Specialist; ATTEND Specialist
PROC: 5A1955Z Respiratory Ventilation, Greater than 96 Consecutive Hours (ICD-10-PCS; 2020-08-30)
PROC: 30233N1 Transfusion of Nonautologous Red Blood Cells into Peripheral Vein, Percutaneous Approach (ICD-10-PCS; 2020-08-30)
PROC: 02H633Z Insertion of Infusion Device into Right Atrium, Percutaneous Approach (ICD-10-PCS; 2020-08-30)
PROC: 0FB20ZZ Excision of Left Lobe Liver, Open Approach (ICD-10-PCS; 2020-09-01)
PROC: 0DB80ZZ Excision of Small Intestine, Open Approach (ICD-10-PCS; 2020-09-01)
PROC: B548ZZA Ultrasonography of Superior Vena Cava, Guidance (ICD-10-PCS; 2020-09-01)
PROC: 2W43X5Z Packing of Abdominal Wall using Packing Material (ICD-10-PCS; 2020-09-01)
PROC: 0B9C7ZX Drainage of Right Upper Lung Lobe, Via Natural or Artificial Opening, Diagnostic (ICD-10-PCS; 2020-09-01)
PROC: 0BC68ZZ Extirpation of Matter from Right Lower Lobe Bronchus, Via Natural or Artificial Opening Endoscopic (ICD-10-PCS; 2020-09-01)
PROC: 0BC48ZZ Extirpation of Matter from Right Upper Lobe Bronchus, Via Natural or Artificial Opening Endoscopic (ICD-10-PCS; 2020-09-01)
PROC: 0FB00ZZ Excision of Liver, Open Approach (ICD-10-PCS; 2020-09-02)
PROC: 0D9670Z Drainage of Stomach with Drainage Device, Via Natural or Artificial Opening (ICD-10-PCS; 2020-09-02)
PROC: 0B113F4 Bypass Trachea to Cutaneous with Tracheostomy Device, Percutaneous Approach (ICD-10-PCS; principal; 2020-09-09)
DX: S36.113A Laceration of liver, unspecified degree, initial encounter (principal); T79.4XXA Traumatic shock, initial encounter; J80 Acute respiratory distress syndrome; J18.9 Pneumonia, unspecified organism; N18.4 Chronic kidney disease, stage 4 (severe); D62 Acute posthemorrhagic anemia; Z68.41 Body mass index [BMI] 40.0-44.9, adult; I96 Gangrene, not elsewhere classified; N17.9 Acute kidney failure, unspecified; J98.11 Atelectasis; E87.0 Hyperosmolality and hypernatremia; E87.1 Hypo-osmolality and hyponatremia; R18.8 Other ascites; T79.6XXA Traumatic ischemia of muscle, initial encounter; Z20.822 Contact with and (suspected) exposure to COVID-19; G47.33 Obstructive sleep apnea (adult) (pediatric); K21.9 Gastro-esophageal reflux disease without esophagitis; M19.90 Unspecified osteoarthritis, unspecified site; W34.00XA Accidental discharge from unspecified firearms or gun, initial encounter; E87.5 Hyperkalemia; F17.210 Nicotine dependence, cigarettes, uncomplicated; F19.10 Other psychoactive substance abuse, uncomplicated; I12.9 Hypertensive chronic kidney disease with stage 1 through stage 4 chronic kidney disease, or unspecified chronic kidney disease; E66.01 Morbid (severe) obesity due to excess calories; E83.39 Other disorders of phosphorus metabolism; E83.42 Hypomagnesemia
CPT/HCPCS: 31624; 36415; 36416; 36430; 36600; 71045; 74018; 74176; 80048; 80053; 80076; 81003; 81015; 82330; 82550; 82803; 82805; 83605; 83690; 83735; 83880; 84100; 85007; 85025; 85027; 85610; 85730; 86850; 86900; 86901; 87040; 87070; 87086; 87205; 87635; 88307; 94002; 94003; 94640; 96365; 96366; 96368; 96376; G0390; J0360; J0690; J1100; J1450; J1650; J1815; J1940; J2001; J2060; J2185; J2250; J2270; J2370; J2405; J2543; J2704; J3010; J3475; J3490; J7070; J7620; P9016; P9045; P9047; Q9967; S0028; U0003; U0005